=== PATIENT | female | born 1960 | race Caucasian/White ===

== ENCOUNTER → 2018-09-06 12:18 | Outpatient (CLI) | payer SELFPAY ==
[2018-09-06 13:05] LABS: Add Manual Diff / Slide Review NO; Basophils Absolute Auto 0 /uL (0-100); Basophils Percent Auto 0.7 % (0-2); Eosinophils Absolute Auto 200 /uL (0-450); Eosinophils Percent Auto 3.5 % (2-4); Hematocrit 39.9 % (36-46); Hemoglobin 13.2 g/dL (12.0-16.0); Lymphocytes Absolute Auto 2000 /uL (1100-4500); Lymphocytes Percent Auto 34.4 % (25-40); Mean Corpuscular HGB Conc 33.1 % (30-36); Mean Corpuscular Hemoglobin 27.7 PG (26-34); Mean Corpuscular Volume 83.7 fL (80-100); Monocytes Absolute Auto 300 /uL (0-900); Monocytes Percent Auto 5.9 % (3-14); Neutrophils Absolute Auto 3300 /uL (1500-7000); Neutrophils Percent Auto 55.5 % (50-75); Platelet Count 220 X10^3/uL (150-400); Red Blood Cell Count 4.77 X10^6/uL (4.0-5.2); Red Cell Distribution Width 14.1 % (11.6-14.8); White Blood Cell Count 5.9 X10^3/uL (4.5-11.0)
[2018-09-06 13:31] LABS: Alanine Aminotransferase 25 IU/L (9-52); Albumin 3.9 g/dL (3.5-5.0); Albumin Globulin Ratio 1.4 (1.0-2.8); Alkaline Phosphatase 51 U/L (38-126); Aspartate Aminotransferase 23 IU/L (14-36); BUN Creatinine Ratio 23.3 (6-22); Bilirubin Total 0.6 mg/dL (0.2-1.3); Blood Urea Nitrogen 14 mg/dL (7-17); Calcium 9.3 mg/dL (8.4-10.2); Carbon Dioxide 35 mmol/L (22-32); Chloride 95 mmol/L (98-107); Cholesterol 178 mg/dL (140-199); Estimated Glomerular Filt Rate > 60.0 mL/min (>60); Globulin 2.7 g/dL (1.7-4.1); Glucose 125 mg/dL (70-100); HDL Cholesterol 44 mg/dL (40-60); HEMOLYSIS < 15 (0-50); LDL Cholesterol Calculated 107 mg/dL (<100); Potassium 3.3 mmol/L (3.4-5.1); Sodium 139 mmol/L (137-145); Total Protein 6.6 g/dL (6.3-8.2); Triglycerides 136 mg/dL (35-150)
[2018-09-06 13:55] LABS: Hemoglobin A1C% w Est Avg Glu 6.3 % (4.0-6.0)
[2018-09-06 16:24] LABS: Free T3, Triiodothyronine Free 4.26 pg/mL (2.77-5.27); Free T4, Direct Thyroxine 1.06 ng/dL (0.78-2.19)
[2018-09-06 16:38] LABS: Thyroid Stimulating Hormone 0.77 uIU/mL (0.47-4.68)
[2018-09-09 15:56] LABS: Thyroid Peroxidase Antibodies 507 IU/mL (< 9)
== END ==
PROVIDERS: PCP Naturopath; Visit Provider Naturopath
DX: Z00.00 Encounter for general adult medical examination without abnormal findings (principal); E11.9 Type 2 diabetes mellitus without complications; E06.3 Autoimmune thyroiditis
CPT/HCPCS: 36415; 80053; 80061; 83036; 84439; 84443; 84481; 85025; 86376

== ENCOUNTER → 2019-09-19 13:01 | Outpatient (CLI) | payer SELFPAY ==
[2019-09-19 13:51] LABS: Add Manual Diff / Slide Review NO; Basophils Absolute Auto 100 /uL (0-100); Basophils Percent Auto 0.8 % (0-2); Eosinophils Absolute Auto 300 /uL (0-450); Hematocrit 40.1 % (36-46); Hemoglobin 13.4 g/dL (12.0-16.0); Lymphocytes Absolute Auto 2200 /uL (1100-4500); Lymphocytes Percent Auto 32.6 % (25-40); Mean Corpuscular HGB Conc 33.4 % (30-36); Mean Corpuscular Volume 83.9 fL (80-100); Monocytes Absolute Auto 400 /uL (0-900); Monocytes Percent Auto 5.4 % (3-14); Neutrophils Absolute Auto 3900 /uL (1500-7000); Neutrophils Percent Auto 57.2 % (50-75); Platelet Count 246 X10^3/uL (150-400); Red Blood Cell Count 4.78 X10^6/uL (4.0-5.2); White Blood Cell Count 6.8 X10^3/uL (4.5-11.0)
[2019-09-19 14:02] LABS: Hemoglobin A1C% w Est Avg Glu 6.8 % (4.0-6.0)
[2019-09-19 14:10] LABS: Alanine Aminotransferase 21 IU/L (<35); Albumin 4.1 g/dL (3.5-5.0); Albumin Globulin Ratio 1.7 (1.0-2.8); Alkaline Phosphatase 52 U/L (38-126); Aspartate Aminotransferase 20 IU/L (14-36); Bilirubin Total 0.5 mg/dL (0.2-1.3); Blood Urea Nitrogen 13 mg/dL (7-17); Calcium 9.6 mg/dL (8.4-10.2); Carbon Dioxide 36 mmol/L (22-32); Chloride 95 mmol/L (98-107); Cholesterol 187 mg/dL (140-199); Estimated Glomerular Filt Rate > 60.0 mL/min (>60); Globulin 2.4 g/dL (1.7-4.1); Glucose 120 mg/dL (70-100); HDL Cholesterol 46 mg/dL (40-60); HEMOLYSIS < 15 (0-50); LDL Cholesterol Calculated 112 mg/dL (<100); Potassium 3.7 mmol/L (3.4-5.1); Sodium 135 mmol/L (137-145); Total Protein 6.5 g/dL (6.3-8.2); Triglycerides 147 mg/dL (35-150)
[2019-09-19 14:39] LABS: Thyroid Stimulating Hormone 2.81 uIU/mL (0.47-4.68)
[2019-09-20 06:40] LABS: Thyroid Peroxidase Antibodies 411 IU/mL (0-34)
== END ==
PROVIDERS: PCP Naturopath; Referring Provider Naturopath; Visit Provider Naturopath
DX: Z00.00 Encounter for general adult medical examination without abnormal findings (principal); E11.9 Type 2 diabetes mellitus without complications; E06.3 Autoimmune thyroiditis
CPT/HCPCS: 36415; 80053; 80061; 83036; 84443; 85025; 86376

== ENCOUNTER → 2020-10-29 11:55 | Outpatient (CLI) | payer OTHER, SELFPAY ==
[2020-10-29 12:56] LABS: Add Manual Diff / Slide Review NO; Basophils Absolute Auto 0 /uL (0-100); Basophils Percent Auto 0.6 % (0-2); Eosinophils Absolute Auto 300 /uL (0-450); Eosinophils Percent Auto 4.8 % (2-4); Hematocrit 39.3 % (36-46); Hemoglobin 12.8 g/dL (12.0-16.0); Lymphocytes Absolute Auto 2100 /uL (1100-4500); Lymphocytes Percent Auto 31.8 % (25-40); Mean Corpuscular HGB Conc 32.6 % (30-36); Mean Corpuscular Hemoglobin 27.3 PG (26-34); Mean Corpuscular Volume 83.7 fL (80-100); Monocytes Absolute Auto 400 /uL (0-900); Monocytes Percent Auto 5.9 % (3-14); Neutrophils Absolute Auto 3700 /uL (1500-7000); Neutrophils Percent Auto 56.9 % (50-75); Platelet Count 241 X10^3/uL (150-400); Red Cell Distribution Width 14.1 % (11.6-14.8); White Blood Cell Count 6.5 X10^3/uL (4.5-11.0)
[2020-10-29 13:04] LABS: Hemoglobin A1C% w Est Avg Glu 6.6 % (4.0-6.0)
[2020-10-29 13:12] LABS: Alanine Aminotransferase 29 IU/L (<35); Albumin 3.9 g/dL (3.5-5.0); Albumin Globulin Ratio 1.4 (1.0-2.8); Alkaline Phosphatase 52 U/L (38-126); Aspartate Aminotransferase 24 IU/L (14-36); BUN Creatinine Ratio 24.2 (6-22); Bilirubin Total 0.4 mg/dL (0.2-1.3); Blood Urea Nitrogen 15 mg/dL (7-17); Calcium 9.3 mg/dL (8.4-10.2); Carbon Dioxide 32 mmol/L (22-32); Chloride 98 mmol/L (98-107); Cholesterol 192 mg/dL (140-199); Estimated Glomerular Filt Rate > 60.0 mL/min (>60); Globulin 2.8 g/dL (1.7-4.1); Glucose 129 mg/dL (70-100); HDL Cholesterol 47 mg/dL (40-60); HEMOLYSIS < 15 (0-50); LDL Cholesterol Calculated 120 mg/dL (<100); Potassium 3.6 mmol/L (3.4-5.1); Sodium 137 mmol/L (137-145); Total Protein 6.7 g/dL (6.3-8.2); Triglycerides 125 mg/dL (35-150)
[2020-10-29 14:12] LABS: Free T3, Triiodothyronine Free 3.68 pg/mL (2.77-5.27)
[2020-10-29 14:25] LABS: Thyroid Stimulating Hormone 1.18 uIU/mL (0.47-4.68)
[2020-10-30 06:27] LABS: Thyroid Peroxidase Antibodies 387 IU/mL (0-34)
== END ==
PROVIDERS: PCP Naturopath; Referring Provider Naturopath; Visit Provider Naturopath
DX: Z00.00 Encounter for general adult medical examination without abnormal findings (principal); E06.3 Autoimmune thyroiditis; E11.9 Type 2 diabetes mellitus without complications
CPT/HCPCS: 36415; 80053; 80061; 83036; 84439; 84443; 84481; 85025; 86376

== ENCOUNTER 2021-09-11 11:15 | Outpatient (RCR) | payer OTHER, SELFPAY ==
--- NOTE | 2021-03-11 17:44 | PT.OPPOC ---
Physical, Occupational & Speech Therapy At [facility] Current Diagnoses Bilateral primary osteoarthritis of knee (03/11/21) Difficulty in walking, not elsewhere classified (03/11/21) Weakness (03/11/21) Visit Care Team Role Provider Type Lily Antunez ND Family Provider Non-Staff Primary Care Provider Specialty: Naturopathy Address: [address] [place] [address], [id number] Email: Earnest Florentino MD Attending Provider Non-Staff Referring Provider Specialty: Orthopedics Address: [address] [place] [address], [id number] Email: Plan Of Care PT-OP-T Assessment and Plan Start: 03/10/21 17:44 Freq: Status: Active Protocol: Document 03/11/21 09:51 [facility] (Rec: 03/11/21 10:34 [facility] [id number]) Physical Therapy Assessment Rehab Potential Rehabilitation Potential Good Evaluation Complexity Number of Personal Factors/Comorbidities 3 or More Number of Body Systems Impaired 4 or More Clinical Presentation at Evaluation Stable Impairments Impairments Activity Tolerance,Balance, Functional Activities, Functional Mobility,Gait,Pain, Posture,ROM,Soft Tissue Mobility,Strength Goals ROM [employer] Goal (LTG) Pt will improve knee ROM to at least 4-115 to allow for improved gait mechanics and tolerance to stairs. LTG Duration 05/09/21 balance [employer] Goal (LTG) Pt will be able to do at least 12 sec SLS w/o lat shear of hips B in order to show improved balance and stability in the community and improve her gait mechanics. LTG Duration 05/09/21 stairs Short Term Goal (STG) Pt will be able to ascend stairs without rail reciprocally w/o pain STG Duration 04/11/21 Usp Goal (LTG) Pt will be able to consistatnly descend stairs reciprocally w/o pain w/min rail use LTG Duration 05/09/21 strength Short Term Goal (STG) PT will be indep w/HEP for aquatic and land exercises in order to have appropriate fitness program to dec knee pain and manage weight to help w/knee pain. STG Duration 04/11/21 Usp Goal (LTG) pt will have at least 4+/5 LE strength in all planes and at least 3/5 LPM in all planes to show improvement in strength in order to allow improved ability for mobility. LTG Duration 05/09/21 LEFS Impairment 49/80 Usp Goal (LTG) Pt will improve LEFS score to at least 60/80 to show improved functional ability. LTG Duration 05/10/21 Assessment Summary Assessment Pt presents w/B knee pain that limits her ability to do all standing, walking, stair climbing activities along w/ working out, which she hopes to progress in order to lose weight in order to unload knees further. She is very motivated to start a home program in her dgt's pool and on land. She has significant hip and core weakness which shows dec proximal stability which affects her knee mobility when she is WB doing activities like standing,w alking and stairs. She is lacking signficiant ROM whcih limits her ability to do stairs and have correct gait mechanics. She would benefit from skillled PT to work on these deficits. Physical Therapy Plan Frequency and Duration Frequency of Treatment 1-2x/week Duration of Treatment 2 months Plan of Care Start Date 03/11/21 Plan of Care End Date 05/09/21 Therapeutic Interventions Therapeutic Interventions Aquatic Therapy,Balance Training,Gait Training,Home Exercise Program,Joint Mobilizations,Manual Therapy, Neuromuscular Re-education, Patient/Caregiver Education, Self-Care/Home Management,Soft Tissue Mobilization,Taping, Therapeutic Activities, Therapeutic Exercises Modalities Cold Pack/Ice Massage,Electric Stimulation,Hot Packs, Infrared Therapy,Ultrasound Next Visit Focus/Plan Next Note Type Treatment Note Next Visit Plan SLS, mini squats, sidesteps w/ tband, clamshells, SLR w/core facilitation, bridge, Manual to soft tissue around knees Plan of Care Dates Plan of Care Start Date 03/11/21 Plan of Care End Date 05/09/21 Electronically Signed by: Anjana Mullins, PT 03/13/21 3105 Please Sign and Return: I have reviewed this Plan of Care and certify that the skilled therapy services above are required to meet the patient?s needs. Physician Signature Date Printed Name and Credentials Clinical Instructor Signature Printed Name and Credentials
--- NOTE | 2021-03-11 17:44 | PT.OIE ---
Current Diagnoses Bilateral primary osteoarthritis of knee (03/11/21) Difficulty in walking, not elsewhere classified (03/11/21) Weakness (03/11/21) Visit Care Team Role Provider Type Lily Antunez ND Family Provider Non-Staff Primary Care Provider Specialty: Naturopathy Address: [address] [place] [address], [id number] Email: Earnest Florentino MD Attending Provider Non-Staff Referring Provider Specialty: Orthopedics Address: [address] [place], [place] [id number] Mera [facility] [address], [place], [address] Email: Physical Therapy Initial Evaluation PT-OP-A Visit Information Start: 03/10/21 17:44 Freq: Status: Active Protocol: Document 03/11/21 09:51 [facility] (Rec: 03/11/21 10:34 [facility] [id number]) Out-Patient Physical Therapy Visit Information Visit Information Visit Type Initial Evaluation Visit Start Time 09:50 Visit Number 1 Number of MUSIC GRAPHER Visits 0 PT-OP-B Current Condition Start: 03/10/21 17:44 Freq: Status: Active Protocol: Document 03/11/21 09:51 [facility] (Rec: 03/11/21 10:34 [facility] [id number]) Current Condition History of Current Condition Onset Date at least 11 years ago. Current Complaints B knee pain History of Current Condition Pt reports with medication her knee pain is under control. She has lost 100 lbs and that has helped along w/working w/ service dog trainer but w/COVID she isn't working now. She is girotonics and taht has helped a lot. Pt reports she was diagnosed w/ OA 11 years ago. said there is some bone on bone but was not at the point for needing a knee replacement. It is hard for her to go down stairs and needs a rail for up/down. UP typically doesn't hurt. Pt reports if she has to stand for a couple hours in the kitchen her knees hurt which is common d/t her large family . She is able to make pain more managable if she sits down for a couple min during cooking. Pt reports R knee is worse than the left and it will swell something. Sometimes she feels like there is something muscular. Her quad and HS can bother her but the girotonics has helped. She goes once a week to the girotonics service dog trainer. It is supposed to strengthen and improve flexibility. Notes she has not been working out as much recently. SHe has access to a pool and wants to start working out and using the pool more often. Pt reports she did have COVID about 1 year ago and some sideaffects she had was a really bad backache and GRIMM. Since then every now and then she gets the back pain and typically gets some shoulder tightness Pt reports every once in a while her L hip will her bug her, especailly the last couple of days. She sleeps on her side and/or back. Pt has history of gallbladder and C-sections. Pt has a stationary bike and outdoor bike that she plans to use. When she was going to her service dog trainer, she did the treadmill, rowed, and did weights/squats. Pt reports d/t severe pain in heel, she had surgery for lengthening of tendon on the bottom of foot but not positive of foot and that improved it. She thinks maybe left Prior Treatments and Tests Xrays done showing OA; 1 injection 11 years ago that helped Treatment Goals Patient/Caregiver Goals Be able to work out w/o knee pain(bike, pool and lifting) to be able to lose at least 50 more 50lbs, be able to do stairs better(right now has to do step to w/o rail up and step to all the time down) PT-OP-C Subjective Start: 03/10/21 17:44 Freq: Status: Active Protocol: Document 03/11/21 09:51 [facility] (Rec: 03/11/21 10:34 [facility] [id number]) Patient Questionnaires Lower Extremity Functional Scale LEFS Score 49/80 OP-PT Pain Assessment Location B knees Pain Location Details ant knees Description Aching,Tightness Frequency Intermittent Pain Duration can take a couple days Radiating Location quad/HS Pain Aggravating Factors Standing,Walking,Stair Climbing Other Pain Aggravating Factors down stairs Pain Alleviating Factors Cold,Heat,Medication Other Pain Alleviating Factors daily dicolofenac, occ ibuprofen PT-OP-D Balance Start: 03/10/21 17:44 Freq: Status: Active Protocol: Document 03/11/21 09:51 [facility] (Rec: 03/11/21 10:34 [facility] [id number]) Balance Tests Single Limb Standing Single Limb- Right 7 sec w/UEs and signficiant lat shear of hips Single Limb- Left 11 sec w/UEs and signficiant lat shear of hips PT-OP-F Manual Assessment Start: 03/10/21 17:44 Freq: Status: Active Protocol: Document 03/11/21 09:51 [facility] (Rec: 03/11/21 10:34 [facility] [id number]) Manual Assessments Joint Mobility Assessment Joint Mobility Assessment B Varus knees & rear foot B, bunion L>R, IR of femur B, ER of tibia L>R, knee goes into IR R w/knee flex, flat arch PT-OP-G Mobility & Gait Start: 03/10/21 17:44 Freq: Status: Active Protocol: Document 03/11/21 09:51 [facility] (Rec: 03/11/21 10:34 [facility] [id number]) OP Gait Assessment Comments Gait Comments Amb w/dec push off R>L, lat lean over R w/WB significant, add of L PT-OP-J Posture/Palpation/Skin Start: 03/10/21 17:44 Freq: Status: Active Protocol: Document 03/11/21 09:51 [facility] (Rec: 03/11/21 10:34 [facility] [id number]) Posture Evaluation [facility] Postural Classification System Lumbar Protective Mechanism Left AP 0 Lumbar Protective Mechanism Right AP 1 Lumbar Protective Mechanism Left PA 1 Lumbar Protective Mechanism Right PA 0 PT-OP-K Range of Motion Start: 03/10/21 17:44 Freq: Status: Active Protocol: Document 03/11/21 09:51 [facility] (Rec: 03/11/21 10:34 [facility] [id number]) Knee Goniometric Range of Motion Knee Right Flexion Active (degrees) 102 Extension Active (degrees) 12 Comments discomfort flex & ext Left Flexion Active (degrees) 102 Extension Active (degrees) 6 PT-OP-L Special Tests Start: 03/10/21 17:44 Freq: Status: Active Protocol: Document 03/11/21 09:51 [facility] (Rec: 03/11/21 10:34 [facility] [id number]) Special Tests Knee Special Tests Hamstring Test Results mild-mod tightness B PT-OP-M Strength Start: 03/10/21 17:44 Freq: Status: Active Protocol: Document 03/11/21 09:51 [facility] (Rec: 03/11/21 10:34 [facility] [id number]) Hip Strength Hip Manual Muscle Testing Right Flexion (L2) 4 Good Extension (S1) 4- Good- Abduction 4 Good Adduction 3+ Fair+ External Rotation 4- Good- Internal Rotation 4+ Good+ Left Flexion (L2) 4- Good- Extension (S1) 4- Good- Abduction 4- Good- Adduction 3+ Fair+ External Rotation 4 Good Internal Rotation 4 Good Knee Strength Knee Manual Muscle Testing Right Flexion (S2) 4 Good Extension (L3) 4+ Good+ Left Flexion (S2) 4 Good Extension (L3) 4+ Good+ Ankle/Foot Strength Ankle and Foot Manual Muscle Testing Right Dorsiflexion (L4) 5 Normal Plantarflexion (S1) 5 Normal Comments 20 heel raises B w/inversion Left Dorsiflexion (L4) 5 Normal Plantarflexion (S1) 5 Normal PT-OP-T Assessment and Plan Start: 03/10/21 17:44 Freq: Status: Active Protocol: Document 03/11/21 09:51 [facility] (Rec: 03/11/21 10:34 [facility] [id number]) Physical Therapy Assessment Rehab Potential Rehabilitation Potential Good Evaluation Complexity Number of Personal Factors/Comorbidities 3 or More Number of Body Systems Impaired 4 or More Clinical Presentation at Evaluation Stable Impairments Impairments Activity Tolerance,Balance, Functional Activities, Functional Mobility,Gait,Pain, Posture,ROM,Soft Tissue Mobility,Strength Goals ROM [employer] Goal (LTG) Pt will improve knee ROM to at least 4-115 to allow for improved gait mechanics and tolerance to stairs. LTG Duration 05/09/21 balance [employer] Goal (LTG) Pt will be able to do at least 12 sec SLS w/o lat shear of hips B in order to show improved balance and stability in the community and improve her gait mechanics. LTG Duration 05/09/21 stairs Short Term Goal (STG) Pt will be able to ascend stairs without rail reciprocally w/o pain STG Duration 04/11/21 [employer] Goal (LTG) Pt will be able to consistatnly descend stairs reciprocally w/o pain w/min rail use LTG Duration 05/09/21 strength Short Term Goal (STG) PT will be indep w/HEP for aquatic and land exercises in order to have appropriate fitness program to dec knee pain and manage weight to help w/knee pain. STG Duration 04/11/21 Fdc Goal (LTG) pt will have at least 4+/5 LE strength in all planes and at least 3/5 LPM in all planes to show improvement in strength in order to allow improved ability for mobility. LTG Duration 05/09/21 LEFS Impairment 49/80 Fdc Goal (LTG) Pt will improve LEFS score to at least 60/80 to show improved functional ability. LTG Duration 05/10/21 Assessment Summary Assessment Pt presents w/B knee pain that limits her ability to do all standing, walking, stair climbing activities along w/ working out, which she hopes to progress in order to lose weight in order to unload knees further. She is very motivated to start a home program in her dgt's pool and on land. She has significant hip and core weakness which shows dec proximal stability which affects her knee mobility when she is WB doing activities like standing,w alking and stairs. She is lacking signficiant ROM whcih limits her ability to do stairs and have correct gait mechanics. She would benefit from skillled PT to work on these deficits. Physical Therapy Plan Frequency and Duration Frequency of Treatment 1-2x/week Duration of Treatment 2 months Plan of Care Start Date 03/11/21 Plan of Care End Date 05/09/21 Therapeutic Interventions Therapeutic Interventions Aquatic Therapy,Balance Training,Gait Training,Home Exercise Program,Joint Mobilizations,Manual Therapy, Neuromuscular Re-education, Patient/Caregiver Education, Self-Care/Home Management,Soft Tissue Mobilization,Taping, Therapeutic Activities, Therapeutic Exercises Modalities Cold Pack/Ice Massage,Electric Stimulation,Hot Packs, Infrared Therapy,Ultrasound Next Visit Focus/Plan Next Note Type Treatment Note Next Visit Plan SLS, mini squats, sidesteps w/ tband, clamshells, SLR w/core facilitation, bridge, Manual to soft tissue around knees
--- NOTE | 2021-03-18 12:11 | PT.OTN ---
Current Diagnoses Bilateral primary osteoarthritis of knee (03/18/21) Difficulty in walking, not elsewhere classified (03/18/21) Weakness (03/18/21) Physical Therapy Treatment Note PT-OP-A Visit Information Start: 03/10/21 17:44 Freq: Status: Active Protocol: Document 03/18/21 10:26 [facility] (Rec: 03/18/21 12:11 [facility] [id number]) Out-Patient Physical Therapy Visit Information Visit Information Visit Type Treatment Note Visit Start Time 10:31 Visit Stop Time 11:14 Total Visit Minutes 43 Visit Number 2 Number of SAWMILL OR TIMBER YARD WORKER Visits 0 PT-OP-B Current Condition Start: 03/10/21 17:44 Freq: Status: Active Protocol: Document 03/11/21 09:51 [facility] (Rec: 03/11/21 10:34 [facility] [id number]) Current Condition History of Current Condition Onset Date at least 11 years ago. Current Complaints B knee pain History of Current Condition Pt reports with medication her knee pain is under control. She has lost 100 lbs and that has helped along w/working w/ business trainer but w/COVID she isn't working now. She is girotonics and taht has helped a lot. Pt reports she was diagnosed w/ OA 11 years ago. said there is some bone on bone but was not at the point for needing a knee replacement. It is hard for her to go down stairs and needs a rail for up/down. UP typically doesn't hurt. Pt reports if she has to stand for a couple hours in the kitchen her knees hurt which is common d/t her large family . She is able to make pain more managable if she sits down for a couple min during cooking. Pt reports R knee is worse than the left and it will swell something. Sometimes she feels like there is something muscular. Her quad and HS can bother her but the girotonics has helped. She goes once a week to the girotonics business trainer. It is supposed to strengthen and improve flexibility. Notes she has not been working out as much recently. SHe has access to a pool and wants to start working out and using the pool more often. Pt reports she did have COVID about 1 year ago and some sideaffects she had was a really bad backache and GRIMM. Since then every now and then she gets the back pain and typically gets some shoulder tightness Pt reports every once in a while her L hip will her bug her, especailly the last couple of days. She sleeps on her side and/or back. Pt has history of gallbladder and C-sections. Pt has a stationary bike and outdoor bike that she plans to use. When she was going to her business trainer, she did the treadmill, rowed, and did weights/squats. Pt reports d/t severe pain in heel, she had surgery for lengthening of tendon on the bottom of foot but not positive of foot and that improved it. She thinks maybe left Prior Treatments and Tests Xrays done showing OA; 1 injection 11 years ago that helped Treatment Goals Patient/Caregiver Goals Be able to work out w/o knee pain(bike, pool and lifting) to be able to lose at least 50 more 50lbs, be able to do stairs better(right now has to do step to w/o rail up and step to all the time down) PT-OP-C Subjective Start: 03/10/21 17:44 Freq: Status: Active Protocol: Document 03/18/21 10:26 [facility] (Rec: 03/18/21 12:11 [facility] [id number]) OP-PT Subjective Patient Comments Patient Comments Pt reports feels like gyrotonics exercise class helps a ton PT-OP-D Balance Start: 03/10/21 17:44 Freq: Status: Active Protocol: Document 03/11/21 09:51 [facility] (Rec: 03/11/21 10:34 [facility] [id number]) Balance Tests Single Limb Standing Single Limb- Right 7 sec w/UEs and signficiant lat shear of hips Single Limb- Left 11 sec w/UEs and signficiant lat shear of hips PT-OP-F Manual Assessment Start: 03/10/21 17:44 Freq: Status: Active Protocol: Document 03/11/21 09:51 [facility] (Rec: 03/11/21 10:34 [facility] [id number]) Manual Assessments Joint Mobility Assessment Joint Mobility Assessment B Varus knees & rear foot B, bunion L>R, IR of femur B, ER of tibia L>R, knee goes into IR R w/knee flex, flat arch PT-OP-G Mobility & Gait Start: 03/10/21 17:44 Freq: Status: Active Protocol: Document 03/11/21 09:51 [facility] (Rec: 03/11/21 10:34 [facility] [id number]) OP Gait Assessment Comments Gait Comments Amb w/dec push off R>L, lat lean over R w/WB significant, add of L PT-OP-J Posture/Palpation/Skin Start: 03/10/21 17:44 Freq: Status: Active Protocol: Document 03/11/21 09:51 [facility] (Rec: 03/11/21 10:34 [facility] [id number]) Posture Evaluation [facility] Postural Classification System Lumbar Protective Mechanism Left AP 0 Lumbar Protective Mechanism Right AP 1 Lumbar Protective Mechanism Left PA 1 Lumbar Protective Mechanism Right PA 0 PT-OP-K Range of Motion Start: 03/10/21 17:44 Freq: Status: Active Protocol: Document 03/11/21 09:51 [facility] (Rec: 03/11/21 10:34 [facility] [id number]) Knee Goniometric Range of Motion Knee Right Flexion Active (degrees) 102 Extension Active (degrees) 12 Comments discomfort flex & ext Left Flexion Active (degrees) 102 Extension Active (degrees) 6 PT-OP-L Special Tests Start: 03/10/21 17:44 Freq: Status: Active Protocol: Document 03/11/21 09:51 [facility] (Rec: 03/11/21 10:34 [facility] [id number]) Special Tests Knee Special Tests Hamstring Test Results mild-mod tightness B PT-OP-M Strength Start: 03/10/21 17:44 Freq: Status: Active Protocol: Document 03/11/21 09:51 [facility] (Rec: 03/11/21 10:34 [facility] [id number]) Hip Strength Hip Manual Muscle Testing Right Flexion (L2) 4 Good Extension (S1) 4- Good- Abduction 4 Good Adduction 3+ Fair+ External Rotation 4- Good- Internal Rotation 4+ Good+ Left Flexion (L2) 4- Good- Extension (S1) 4- Good- Abduction 4- Good- Adduction 3+ Fair+ External Rotation 4 Good Internal Rotation 4 Good Knee Strength Knee Manual Muscle Testing Right Flexion (S2) 4 Good Extension (L3) 4+ Good+ Left Flexion (S2) 4 Good Extension (L3) 4+ Good+ Ankle/Foot Strength Ankle and Foot Manual Muscle Testing Right Dorsiflexion (L4) 5 Normal Plantarflexion (S1) 5 Normal Comments 20 heel raises B w/inversion Left Dorsiflexion (L4) 5 Normal Plantarflexion (S1) 5 Normal PT-OP-Q Treatments Start: 03/10/21 17:44 Freq: Status: Active Protocol: Document 03/18/21 10:26 [facility] (Rec: 03/18/21 12:11 [facility] [id number]) Cardio Equipment Recumbent Bicycle Duration (Minutes) 5 Resistance 5 Seat Position 5 Therapeutic Exercises Supine Exercises SLR Supine Exercise Name core focus Side bilateral Reps/Minutes 15 bridge Supine Exercise Name focus on core & glutes Side bilateral Reps/Minutes 10 sec x8 Sidelying Exercises clamshells Side bilateral Reps/Minutes 20 Standing Exercises squats Standing Exercise Name mini Side bilateral Equipment Used at bar w/chair behind Reps/Minutes 20 Comments cues for glutes and stand all the way straight up sidesteps Side bilateral Equipment Used L1 Reps/Minutes 20ft Manual Therapy Treatment Soft Tissue Mobilization ITB Body Location L Mobilization Type Rolling,Strumming Intensity/Depth Moderate Body Position Hooklying Comments w/hip IR/ER Neuro Re-Education Treatment Balance Activities SLS Details B trials Comments focus on no hip shear in mirror PT-OP-T Assessment and Plan Start: 03/10/21 17:44 Freq: Status: Active Protocol: Document 03/18/21 10:26 [facility] (Rec: 03/18/21 12:11 [facility] [id number]) Physical Therapy Assessment Goals ROM Retirement Goal (LTG) Pt will improve knee ROM to at least 4-115 to allow for improved gait mechanics and tolerance to stairs. LTG Duration 05/09/21 balance It Consulting Director Goal (LTG) Pt will be able to do at least 12 sec SLS w/o lat shear of hips B in order to show improved balance and stability in the community and improve her gait mechanics. LTG Duration 05/09/21 stairs Short Term Goal (STG) Pt will be able to ascend stairs without rail reciprocally w/o pain STG Duration 04/11/21 It Consulting Director Goal (LTG) Pt will be able to consistatnly descend stairs reciprocally w/o pain w/min rail use LTG Duration 05/09/21 strength Short Term Goal (STG) PT will be indep w/HEP for aquatic and land exercises in order to have appropriate fitness program to dec knee pain and manage weight to help w/knee pain. STG Duration 04/11/21 Retirement Goal (LTG) pt will have at least 4+/5 LE strength in all planes and at least 3/5 LPM in all planes to show improvement in strength in order to allow improved ability for mobility. LTG Duration 05/09/21 LEFS Impairment 49/80 Retirement Goal (LTG) Pt will improve LEFS score to at least 60/80 to show improved functional ability. LTG Duration 05/10/21 Assessment Summary Assessment Pt did well with exercises w/ cues and was able to follow cueing for good form. Noted some L lat thigh discomfort during side step w/pt noting that has been more bothersome in that area. Pt reported significant relief w/ITB work manually. Physical Therapy Plan Frequency and Duration Frequency of Treatment 1-2x/week Duration of Treatment 2 months Plan of Care Start Date 03/11/21 Plan of Care End Date 05/09/21 Next Visit Focus/Plan Next Note Type Treatment Note Next Visit Plan review exercises, soft tissue and joint mobs
--- NOTE | 2021-03-25 11:23 | PT.OTN ---
Current Diagnoses Bilateral primary osteoarthritis of knee (03/25/21) Difficulty in walking, not elsewhere classified (03/25/21) Weakness (03/25/21) Physical Therapy Treatment Note PT-OP-A Visit Information Start: 03/10/21 17:44 Freq: Status: Active Protocol: Document 03/25/21 10:37 [facility] (Rec: 03/25/21 11:23 [facility] [id number]) Out-Patient Physical Therapy Visit Information Visit Information Visit Type Treatment Note Visit Start Time 10:35 Visit Stop Time 11:18 Total Visit Minutes 43 Visit Number 3 Number of BENDING PRESS OPERATOR Visits 0 PT-OP-B Current Condition Start: 03/10/21 17:44 Freq: Status: Active Protocol: Document 03/11/21 09:51 [facility] (Rec: 03/11/21 10:34 [facility] [id number]) Current Condition History of Current Condition Onset Date at least 11 years ago. Current Complaints B knee pain History of Current Condition Pt reports with medication her knee pain is under control. She has lost 100 lbs and that has helped along w/working w/ sports medicine trainer but w/COVID she isn't working now. She is girotonics and taht has helped a lot. Pt reports she was diagnosed w/ OA 11 years ago. said there is some bone on bone but was not at the point for needing a knee replacement. It is hard for her to go down stairs and needs a rail for up/down. UP typically doesn't hurt. Pt reports if she has to stand for a couple hours in the kitchen her knees hurt which is common d/t her large family . She is able to make pain more managable if she sits down for a couple min during cooking. Pt reports R knee is worse than the left and it will swell something. Sometimes she feels like there is something muscular. Her quad and HS can bother her but the girotonics has helped. She goes once a week to the girotonics sports medicine trainer. It is supposed to strengthen and improve flexibility. Notes she has not been working out as much recently. SHe has access to a pool and wants to start working out and using the pool more often. Pt reports she did have COVID about 1 year ago and some sideaffects she had was a really bad backache and GRIMM. Since then every now and then she gets the back pain and typically gets some shoulder tightness Pt reports every once in a while her L hip will her bug her, especailly the last couple of days. She sleeps on her side and/or back. Pt has history of gallbladder and C-sections. Pt has a stationary bike and outdoor bike that she plans to use. When she was going to her sports medicine trainer, she did the treadmill, rowed, and did weights/squats. Pt reports d/t severe pain in heel, she had surgery for lengthening of tendon on the bottom of foot but not positive of foot and that improved it. She thinks maybe left Prior Treatments and Tests Xrays done showing OA; 1 injection 11 years ago that helped Treatment Goals Patient/Caregiver Goals Be able to work out w/o knee pain(bike, pool and lifting) to be able to lose at least 50 more 50lbs, be able to do stairs better(right now has to do step to w/o rail up and step to all the time down) PT-OP-C Subjective Start: 03/10/21 17:44 Freq: Status: Active Protocol: Document 03/25/21 10:37 [facility] (Rec: 03/25/21 11:23 [facility] [id number]) OP-PT Subjective Patient Comments Patient Comments Pt reports feeling much better with knees and hips after last session. Even getting up from the table is improved and isn't as painful Patient Reported Progress Improving PT-OP-D Balance Start: 03/10/21 17:44 Freq: Status: Active Protocol: Document 03/11/21 09:51 [facility] (Rec: 03/11/21 10:34 [facility] [id number]) Balance Tests Single Limb Standing Single Limb- Right 7 sec w/UEs and signficiant lat shear of hips Single Limb- Left 11 sec w/UEs and signficiant lat shear of hips PT-OP-F Manual Assessment Start: 03/10/21 17:44 Freq: Status: Active Protocol: Document 03/11/21 09:51 [facility] (Rec: 03/11/21 10:34 [facility] [id number]) Manual Assessments Joint Mobility Assessment Joint Mobility Assessment B Varus knees & rear foot B, bunion L>R, IR of femur B, ER of tibia L>R, knee goes into IR R w/knee flex, flat arch PT-OP-G Mobility & Gait Start: 03/10/21 17:44 Freq: Status: Active Protocol: Document 03/11/21 09:51 [facility] (Rec: 03/11/21 10:34 [facility] [id number]) OP Gait Assessment Comments Gait Comments Amb w/dec push off R>L, lat lean over R w/WB significant, add of L PT-OP-J Posture/Palpation/Skin Start: 03/10/21 17:44 Freq: Status: Active Protocol: Document 03/11/21 09:51 [facility] (Rec: 03/11/21 10:34 [facility] [id number]) Posture Evaluation [facility] Postural Classification System Lumbar Protective Mechanism Left AP 0 Lumbar Protective Mechanism Right AP 1 Lumbar Protective Mechanism Left PA 1 Lumbar Protective Mechanism Right PA 0 PT-OP-K Range of Motion Start: 03/10/21 17:44 Freq: Status: Active Protocol: Document 03/11/21 09:51 [facility] (Rec: 03/11/21 10:34 [facility] [id number]) Knee Goniometric Range of Motion Knee Right Flexion Active (degrees) 102 Extension Active (degrees) 12 Comments discomfort flex & ext Left Flexion Active (degrees) 102 Extension Active (degrees) 6 PT-OP-L Special Tests Start: 03/10/21 17:44 Freq: Status: Active Protocol: Document 03/11/21 09:51 [facility] (Rec: 03/11/21 10:34 [facility] [id number]) Special Tests Knee Special Tests Hamstring Test Results mild-mod tightness B PT-OP-M Strength Start: 03/10/21 17:44 Freq: Status: Active Protocol: Document 03/11/21 09:51 [facility] (Rec: 03/11/21 10:34 [facility] [id number]) Hip Strength Hip Manual Muscle Testing Right Flexion (L2) 4 Good Extension (S1) 4- Good- Abduction 4 Good Adduction 3+ Fair+ External Rotation 4- Good- Internal Rotation 4+ Good+ Left Flexion (L2) 4- Good- Extension (S1) 4- Good- Abduction 4- Good- Adduction 3+ Fair+ External Rotation 4 Good Internal Rotation 4 Good Knee Strength Knee Manual Muscle Testing Right Flexion (S2) 4 Good Extension (L3) 4+ Good+ Left Flexion (S2) 4 Good Extension (L3) 4+ Good+ Ankle/Foot Strength Ankle and Foot Manual Muscle Testing Right Dorsiflexion (L4) 5 Normal Plantarflexion (S1) 5 Normal Comments 20 heel raises B w/inversion Left Dorsiflexion (L4) 5 Normal Plantarflexion (S1) 5 Normal PT-OP-Q Treatments Start: 03/10/21 17:44 Freq: Status: Active Protocol: Document 03/25/21 10:37 [facility] (Rec: 03/25/21 11:23 [facility] [id number]) Cardio Equipment Recumbent Bicycle Duration (Minutes) 5 Resistance 8 Seat Position 4 Therapeutic Exercises Sidelying Exercises clamshells Side bilateral Reps/Minutes 5 Standing Exercises step up Standing Exercise Name (after 4 in steps train up/ down 2x wt shift) Side bilateral Equipment Used 4 in step Reps/Minutes 15 Comments work on wt shift into LE on step hip hike Side bilateral Equipment Used 4 in step w/rail Reps/Minutes 10 squats Standing Exercise Name mini Side bilateral Equipment Used w/chair behind Reps/Minutes 20 Comments cues for glutes and stand all the way straight up sidesteps Standing Exercise Name cues for core tight and post tilt Side bilateral Equipment Used L1 Reps/Minutes 20ft Manual Therapy Treatment Soft Tissue Mobilization quad Body Location lat border Mobilization Type Rolling,Strumming Intensity/Depth Moderate Body Position Hooklying Joint Mobilizations tib fem Joint R Direction IR tibia Neuro Re-Education Treatment Balance Activities SLS Details B trials Comments focus on no hip shear in mirror PT-OP-T Assessment and Plan Start: 03/10/21 17:44 Freq: Status: Active Protocol: Document 03/25/21 10:37 [facility] (Rec: 03/25/21 11:23 [facility] [id number]) Physical Therapy Assessment Goals ROM Half-Way Goal (LTG) Pt will improve knee ROM to at least 4-115 to allow for improved gait mechanics and tolerance to stairs. LTG Duration 05/09/21 balance Half-Way Goal (LTG) Pt will be able to do at least 12 sec SLS w/o lat shear of hips B in order to show improved balance and stability in the community and improve her gait mechanics. LTG Duration 05/09/21 stairs Short Term Goal (STG) Pt will be able to ascend stairs without rail reciprocally w/o pain STG Duration 04/11/21 Half-Way Goal (LTG) Pt will be able to consistatnly descend stairs reciprocally w/o pain w/min rail use LTG Duration 05/09/21 strength Short Term Goal (STG) PT will be indep w/HEP for aquatic and land exercises in order to have appropriate fitness program to dec knee pain and manage weight to help w/knee pain. STG Duration 04/11/21 Room Service Associate Goal (LTG) pt will have at least 4+/5 LE strength in all planes and at least 3/5 LPM in all planes to show improvement in strength in order to allow improved ability for mobility. LTG Duration 05/09/21 LEFS Impairment 49/80 Room Service Associate Goal (LTG) Pt will improve LEFS score to at least 60/80 to show improved functional ability. LTG Duration 05/10/21 Assessment Summary Assessment Pt did well with steps w/less pain after cuieng.S he did dwell with exercises but did require some cueing. She reported relief w/manual Physical Therapy Plan Frequency and Duration Frequency of Treatment 1-2x/week Duration of Treatment 2 months Plan of Care Start Date 03/11/21 Plan of Care End Date 05/09/21 Next Visit Focus/Plan Next Note Type Treatment Note Next Visit Plan review step ups, squats, side steps, cont to work on thigh and knee mobility
--- NOTE | 2021-03-28 15:32 | PT.OTN ---
Current Diagnoses Bilateral primary osteoarthritis of knee (03/28/21) Difficulty in walking, not elsewhere classified (03/28/21) Weakness (03/28/21) Physical Therapy Treatment Note PT-OP-A Visit Information Start: 03/10/21 17:44 Freq: Status: Active Protocol: Document 03/28/21 15:12 LJ (Rec: 03/28/21 15:32 LJ [id number]) Out-Patient Physical Therapy Visit Information Visit Information Visit Type Aquatic Treatment Note Visit Start Time 11:00 Visit Stop Time 11:45 Total Visit Minutes 45 Visit Number 4 Number of BLUEPRINT ASSEMBLER Visits 1 PT-OP-B Current Condition Start: 03/10/21 17:44 Freq: Status: Active Protocol: Document 03/11/21 09:51 LR (Rec: 03/11/21 10:34 [facility] [id number]) Current Condition History of Current Condition Onset Date at least 11 years ago. Current Complaints B knee pain History of Current Condition Pt reports with medication her knee pain is under control. She has lost 100 lbs and that has helped along w/working w/ cell preparer but w/COVID she isn't working now. She is girotonics and taht has helped a lot. Pt reports she was diagnosed w/ OA 11 years ago. said there is some bone on bone but was not at the point for needing a knee replacement. It is hard for her to go down stairs and needs a rail for up/down. UP typically doesn't hurt. Pt reports if she has to stand for a couple hours in the kitchen her knees hurt which is common d/t her large family . She is able to make pain more managable if she sits down for a couple min during cooking. Pt reports R knee is worse than the left and it will swell something. Sometimes she feels like there is something muscular. Her quad and HS can bother her but the girotonics has helped. She goes once a week to the girotonics cell preparer. It is supposed to strengthen and improve flexibility. Notes she has not been working out as much recently. SHe has access to a pool and wants to start working out and using the pool more often. Pt reports she did have COVID about 1 year ago and some sideaffects she had was a really bad backache and GRIMM. Since then every now and then she gets the back pain and typically gets some shoulder tightness Pt reports every once in a while her L hip will her bug her, especailly the last couple of days. She sleeps on her side and/or back. Pt has history of gallbladder and C-sections. Pt has a stationary bike and outdoor bike that she plans to use. When she was going to her cell preparer, she did the treadmill, rowed, and did weights/squats. Pt reports d/t severe pain in heel, she had surgery for lengthening of tendon on the bottom of foot but not positive of foot and that improved it. She thinks maybe left Prior Treatments and Tests Xrays done showing OA; 1 injection 11 years ago that helped Treatment Goals Patient/Caregiver Goals Be able to work out w/o knee pain(bike, pool and lifting) to be able to lose at least 50 more 50lbs, be able to do stairs better(right now has to do step to w/o rail up and step to all the time down) PT-OP-C Subjective Start: 03/10/21 17:44 Freq: Status: Active Protocol: Document 03/28/21 15:12 LJ (Rec: 03/28/21 15:32 LJ [id number]) OP-PT Subjective Patient Comments Patient Comments Pt excited about pool therapy. States she has access to two pools and already does some exercising at her daughter's pool and her own pool in the warmer months Patient Reported Progress Improving PT-OP-D Balance Start: 03/10/21 17:44 Freq: Status: Active Protocol: Document 03/11/21 09:51 [facility] (Rec: 03/11/21 10:34 [facility] [id number]) Balance Tests Single Limb Standing Single Limb- Right 7 sec w/UEs and signficiant lat shear of hips Single Limb- Left 11 sec w/UEs and signficiant lat shear of hips PT-OP-F Manual Assessment Start: 03/10/21 17:44 Freq: Status: Active Protocol: Document 03/11/21 09:51 [facility] (Rec: 03/11/21 10:34 [facility] [id number]) Manual Assessments Joint Mobility Assessment Joint Mobility Assessment B Varus knees & rear foot B, bunion L>R, IR of femur B, ER of tibia L>R, knee goes into IR R w/knee flex, flat arch PT-OP-G Mobility & Gait Start: 03/10/21 17:44 Freq: Status: Active Protocol: Document 03/11/21 09:51 [facility] (Rec: 03/11/21 10:34 [facility] [id number]) OP Gait Assessment Comments Gait Comments Amb w/dec push off R>L, lat lean over R w/WB significant, add of L PT-OP-J Posture/Palpation/Skin Start: 03/10/21 17:44 Freq: Status: Active Protocol: Document 03/11/21 09:51 [facility] (Rec: 03/11/21 10:34 [facility] [id number]) Posture Evaluation [facility] Postural Classification System Lumbar Protective Mechanism Left AP 0 Lumbar Protective Mechanism Right AP 1 Lumbar Protective Mechanism Left PA 1 Lumbar Protective Mechanism Right PA 0 PT-OP-K Range of Motion Start: 03/10/21 17:44 Freq: Status: Active Protocol: Document 03/11/21 09:51 [facility] (Rec: 03/11/21 10:34 [facility] [id number]) Knee Goniometric Range of Motion Knee Right Flexion Active (degrees) 102 Extension Active (degrees) 12 Comments discomfort flex & ext Left Flexion Active (degrees) 102 Extension Active (degrees) 6 PT-OP-L Special Tests Start: 03/10/21 17:44 Freq: Status: Active Protocol: Document 03/11/21 09:51 [facility] (Rec: 03/11/21 10:34 [facility] [id number]) Special Tests Knee Special Tests Hamstring Test Results mild-mod tightness B PT-OP-M Strength Start: 03/10/21 17:44 Freq: Status: Active Protocol: Document 03/11/21 09:51 [facility] (Rec: 03/11/21 10:34 [facility] [id number]) Hip Strength Hip Manual Muscle Testing Right Flexion (L2) 4 Good Extension (S1) 4- Good- Abduction 4 Good Adduction 3+ Fair+ External Rotation 4- Good- Internal Rotation 4+ Good+ Left Flexion (L2) 4- Good- Extension (S1) 4- Good- Abduction 4- Good- Adduction 3+ Fair+ External Rotation 4 Good Internal Rotation 4 Good Knee Strength Knee Manual Muscle Testing Right Flexion (S2) 4 Good Extension (L3) 4+ Good+ Left Flexion (S2) 4 Good Extension (L3) 4+ Good+ Ankle/Foot Strength Ankle and Foot Manual Muscle Testing Right Dorsiflexion (L4) 5 Normal Plantarflexion (S1) 5 Normal Comments 20 heel raises B w/inversion Left Dorsiflexion (L4) 5 Normal Plantarflexion (S1) 5 Normal PT-OP-Q Treatments Start: 03/10/21 17:44 Freq: Status: Active Protocol: Document 03/25/21 10:37 [facility] (Rec: 03/25/21 11:23 [facility] [id number]) Cardio Equipment Recumbent Bicycle Duration (Minutes) 5 Resistance 8 Seat Position 4 Therapeutic Exercises Sidelying Exercises clamshells Side bilateral Reps/Minutes 5 Standing Exercises step up Standing Exercise Name (after 4 in steps train up/ down 2x wt shift) Side bilateral Equipment Used 4 in step Reps/Minutes 15 Comments work on wt shift into LE on step hip hike Side bilateral Equipment Used 4 in step w/rail Reps/Minutes 10 squats Standing Exercise Name mini Side bilateral Equipment Used w/chair behind Reps/Minutes 20 Comments cues for glutes and stand all the way straight up sidesteps Standing Exercise Name cues for core tight and post tilt Side bilateral Equipment Used L1 Reps/Minutes 20ft Manual Therapy Treatment Soft Tissue Mobilization quad Body Location lat border Mobilization Type Rolling,Strumming Intensity/Depth Moderate Body Position Hooklying Joint Mobilizations tib fem Joint R Direction IR tibia Neuro Re-Education Treatment Balance Activities SLS Details B trials Comments focus on no hip shear in mirror PT-OP-S Aquatic Treatment Start: 03/28/21 15:11 Freq: Status: Active Protocol: Document 03/28/21 15:12 MARBELLA (Rec: 03/28/21 15:32 [id number]) Aquatics Treatment Pool Entry/Exit Pool Entry/Exit Method Stairs Assistance Independent Water Walking [place] March Water Level Chest Level Marching Water Level Chest Level jogging Water Level Chest Level fwd, back, side 2 side Water Level Chest Level Lower Extremity Exercises HS jog Water Level Chest Level Reps/Duration 2 laps Comments cue for gentle landing 4 way hip Details at wall Body Position Standing Water Level Chest Level Reps/Duration 2 x 10 each B SLS Details bilateral Body Position Standing Water Level Waist Level Reps/Duration 4 min Comments opposite LE movement for destabilizing jacks-jills Water Level Chest Level Comments intervals with CC ski shallow CC ski in place Water Level Chest Level Comments intervals with jacks Lower Extremity Stretches quad, HS, hip flexors, gastroc Details at wall Body Position Standing Water Level Waist Level Reps/Duration 2 x 30 ea Balance step up/down Body Position Standing Water Level Chest Level Reps/Duration 5x each LE Comments cues fo rcore stab and glute tightening Kismet Activities Kismet Activities Bicycle,Cross [place],Hip Abduction/Adduction,Sit Kicks Equipment belt Duration 12 Comments pt able to maintain vertical PT-OP-T Assessment and Plan Start: 03/10/21 17:44 Freq: Status: Active Protocol: Document 03/28/21 15:12 MARBELLA (Rec: 03/28/21 15:32 MARBELLA [id number]) Physical Therapy Assessment Rehab Potential Rehabilitation Potential Good Evaluation Complexity Number of Personal Factors/Comorbidities 3 or More Number of Body Systems Impaired 4 or More Clinical Presentation at Evaluation Stable Impairments Impairments Activity Tolerance,Balance, Functional Activities, Functional Mobility,Gait,Pain, Posture,ROM,Soft Tissue Mobility,Strength Goals ROM Tree Inspector Goal (LTG) Pt will improve knee ROM to at least 4-115 to allow for improved gait mechanics and tolerance to stairs. LTG Duration 05/09/21 balance Tree Inspector Goal (LTG) Pt will be able to do at least 12 sec SLS w/o lat shear of hips B in order to show improved balance and stability in the community and improve her gait mechanics. LTG Duration 05/09/21 stairs Short Term Goal (STG) Pt will be able to ascend stairs without rail reciprocally w/o pain STG Duration 04/11/21 Mcc Goal (LTG) Pt will be able to consistatnly descend stairs reciprocally w/o pain w/min rail use LTG Duration 05/09/21 strength Short Term Goal (STG) PT will be indep w/HEP for aquatic and land exercises in order to have appropriate fitness program to dec knee pain and manage weight to help w/knee pain. STG Duration 04/11/21 Mcc Goal (LTG) pt will have at least 4+/5 LE strength in all planes and at least 3/5 LPM in all planes to show improvement in strength in order to allow improved ability for mobility. LTG Duration 05/09/21 LEFS Impairment 49/80 Tree Inspector Goal (LTG) Pt will improve LEFS score to at least 60/80 to show improved functional ability. LTG Duration 05/10/21 Assessment Summary Assessment AQUATICS: Pt did well with all exercises. She shows good coordination in shallow and deep water. She would like a HEP to use at her daughter's pool after learning some exercises from therapy. Physical Therapy Plan Frequency and Duration Frequency of Treatment 1-2x/week Duration of Treatment 2 months Plan of Care Start Date 03/11/21 Plan of Care End Date 05/09/21 Therapeutic Interventions Therapeutic Interventions Aquatic Therapy,Balance Training,Gait Training,Home Exercise Program,Joint Mobilizations,Manual Therapy, Neuromuscular Re-education, Patient/Caregiver Education, Self-Care/Home Management,Soft Tissue Mobilization,Taping, Therapeutic Activities, Therapeutic Exercises Modalities Cold Pack/Ice Massage,Electric Stimulation,Hot Packs, Infrared Therapy,Ultrasound Next Visit Focus/Plan Next Note Type Treatment Note Next Visit Plan review step ups, squats, side steps, cont to work on thigh and knee mobility AQUATICS: Progress pt as tolerated.
--- NOTE | 2021-04-14 12:19 | PT.OPPOC ---
Addendum entered and electronically signed by Anjana Mullins, PT 05/05/21 10:42: POC dates should be 04/14/21-06/12/21 Original Note: Physical, Occupational & Speech Therapy At [facility] Current Diagnoses Bilateral primary osteoarthritis of knee (04/14/21) Difficulty in walking, not elsewhere classified (04/14/21) Weakness (04/14/21) Visit Care Team Role Provider Type Lily Antunez ND Family Provider Non-Staff Primary Care Provider Specialty: Naturopathy Address: [address] [place] [address], [facility] Email: Earnest Florentino MD Attending Provider Non-Staff Referring Provider Specialty: Orthopedics Address: [address] [place] [address], [id number] Email: Plan Of Care PT-OP-T Assessment and Plan Start: 03/10/21 17:44 Freq: Status: Active Protocol: Document 04/14/21 09:45 [facility] (Rec: 04/14/21 12:18 [facility] [id number]) Physical Therapy Assessment Goals ROM Receiving Associate Goal (LTG) Pt will improve knee ROM to at least 4-115 to allow for improved gait mechanics and tolerance to stairs. 04/14-L improved LTG Duration 06/12/21 balance Residential Goal (LTG) Pt will be able to do at least 12 sec SLS w/o lat shear of hips B in order to show improved balance and stability in the community and improve her gait mechanics. 27 dec lean and use of UEs LTG Duration 06/12/21 stairs Short Term Goal (STG) Pt will be able to ascend stairs without rail reciprocally w/o pain 04/14-still difficult since reinjury STG Duration 05/12/21 Receiving Associate Goal (LTG) Pt will be able to consistatnly descend stairs reciprocally w/o pain w/min rail use LTG Duration 06/12/21 strength Short Term Goal (STG) PT will be indep w/HEP for aquatic and land exercises in order to have appropriate fitness program to dec knee pain and manage weight to help w/knee pain. STG Duration achieved and progressing as pt able Receiving Associate Goal (LTG) pt will have at least 4+/5 LE strength in all planes and at least 3/5 LPM in all planes to show improvement in strength in order to allow improved ability for mobility. 04/14-improved L LTG Duration 06/12/21 LEFS Impairment 49/80 Receiving Associate Goal (LTG) Pt will improve LEFS score to at least 60/80 to show improved functional ability. 04/14 improved to 51/80 LTG Duration 06/12/21 Assessment Summary Assessment Pt was doing well before going on vacation but while on vacation after getting up from really low toilet, she took a couple steps and had sharp R knee pain and was limping for 6 days prior to feeling improvement in gait. She did exercises in pool on vacation to improve this pain, but her R knee still feels unstable. She showed improved strength and range in L knee today but R knee showed less progress likely d/t re-injury while on vaction 1.5 weeks ago. She was doing well and has noted significant benefit w/PT up to this point. Pt would benefit from cont PT in order to cont to work on balance, gait, strength and ROM to improve her functional ability. Physical Therapy Plan Frequency and Duration Frequency of Treatment 1-2x/week Duration of Treatment 2 months Plan of Care Start Date 03/11/21 Plan of Care End Date 05/09/21 Therapeutic Interventions Therapeutic Interventions Aquatic Therapy,Balance Training,Gait Training,Home Exercise Program,Joint Mobilizations,Manual Therapy, Neuromuscular Re-education, Patient/Caregiver Education, Self-Care/Home Management,Soft Tissue Mobilization,Taping, Therapeutic Activities, Therapeutic Exercises Modalities Cold Pack/Ice Massage,Electric Stimulation,Hot Packs, Infrared Therapy,Ultrasound Next Visit Focus/Plan Next Note Type Treatment Note Next Visit Plan review step ups, squats, side steps, cont to work on thigh and knee mobility AQUATICS: Progress pt as tolerated. Plan of Care Dates Plan of Care Start Date 03/11/21 Plan of Care End Date 05/09/21 Electronically Signed by: Anjana Mullins, PT 04/14/21 [id number] Please Sign and Return: I have reviewed this Plan of Care and certify that the skilled therapy services above are required to meet the patient?s needs. Physician Signature Date Printed Name and Credentials Clinical Instructor Signature Printed Name and Credentials
--- NOTE | 2021-04-16 15:08 | PT.OTN ---
Current Diagnoses Bilateral primary osteoarthritis of knee (04/16/21) Difficulty in walking, not elsewhere classified (04/16/21) Weakness (04/16/21) Physical Therapy Treatment Note PT-OP-A Visit Information Start: 03/10/21 17:44 Freq: Status: Active Protocol: Document 04/16/21 14:49 LJ (Rec: 04/16/21 15:08 LJ [id number]) Out-Patient Physical Therapy Visit Information Visit Information Visit Type Aquatic Treatment Note Visit Start Time 10:15 Visit Stop Time 11:00 Total Visit Minutes 45 Visit Number 6 Number of ROLL OVER LOADER Visits 1 PT-OP-B Current Condition Start: 03/10/21 17:44 Freq: Status: Active Protocol: Document 03/11/21 09:51 LR (Rec: 03/11/21 10:34 [facility] [id number]) Current Condition History of Current Condition Onset Date at least 11 years ago. Current Complaints B knee pain History of Current Condition Pt reports with medication her knee pain is under control. She has lost 100 lbs and that has helped along w/working w/ operations trainer but w/COVID she isn't working now. She is girotonics and taht has helped a lot. Pt reports she was diagnosed w/ OA 11 years ago. said there is some bone on bone but was not at the point for needing a knee replacement. It is hard for her to go down stairs and needs a rail for up/down. UP typically doesn't hurt. Pt reports if she has to stand for a couple hours in the kitchen her knees hurt which is common d/t her large family . She is able to make pain more managable if she sits down for a couple min during cooking. Pt reports R knee is worse than the left and it will swell something. Sometimes she feels like there is something muscular. Her quad and HS can bother her but the girotonics has helped. She goes once a week to the girotonics operations trainer. It is supposed to strengthen and improve flexibility. Notes she has not been working out as much recently. SHe has access to a pool and wants to start working out and using the pool more often. Pt reports she did have COVID about 1 year ago and some sideaffects she had was a really bad backache and GRIMM. Since then every now and then she gets the back pain and typically gets some shoulder tightness Pt reports every once in a while her L hip will her bug her, especailly the last couple of days. She sleeps on her side and/or back. Pt has history of gallbladder and C-sections. Pt has a stationary bike and outdoor bike that she plans to use. When she was going to her operations trainer, she did the treadmill, rowed, and did weights/squats. Pt reports d/t severe pain in heel, she had surgery for lengthening of tendon on the bottom of foot but not positive of foot and that improved it. She thinks maybe left Prior Treatments and Tests Xrays done showing OA; 1 injection 11 years ago that helped Treatment Goals Patient/Caregiver Goals Be able to work out w/o knee pain(bike, pool and lifting) to be able to lose at least 50 more 50lbs, be able to do stairs better(right now has to do step to w/o rail up and step to all the time down) PT-OP-C Subjective Start: 03/10/21 17:44 Freq: Status: Active Protocol: Document 04/16/21 14:49 (Rec: 04/16/21 15:08 [id number]) OP-PT Subjective Patient Comments Patient Comments Pt reports that her knee pain is less than Wednesday when she was last seen at the clinic. She states the top of the right thigh and on the lateral side of the thigh feels tight particularly when the leg is straight. While on vacation, pt [place] exercises [place] pool. PT-OP-D Balance Start: 03/10/21 17:44 Freq: Status: Active Protocol: Document 04/14/21 09:45 [facility] (Rec: 04/14/21 12:18 [facility] [id number]) Balance Tests Single Limb Standing Single Limb- Right 12 sec w/minor lat lean Single Limb- Left 10 sec PT-OP-F Manual Assessment Start: 03/10/21 17:44 Freq: Status: Active Protocol: Document 03/11/21 09:51 [facility] (Rec: 03/11/21 10:34 [facility] [id number]) Manual Assessments Joint Mobility Assessment Joint Mobility Assessment B Varus knees & rear foot B, bunion L>R, IR of femur B, ER of tibia L>R, knee goes into IR R w/knee flex, flat arch PT-OP-G Mobility & Gait Start: 03/10/21 17:44 Freq: Status: Active Protocol: Document 03/11/21 09:51 [facility] (Rec: 03/11/21 10:34 [facility] [id number]) OP Gait Assessment Comments Gait Comments Amb w/dec push off R>L, lat lean over R w/WB significant, add of L PT-OP-J Posture/Palpation/Skin Start: 03/10/21 17:44 Freq: Status: Active Protocol: Document 03/11/21 09:51 [facility] (Rec: 03/11/21 10:34 [facility] [id number]) Posture Evaluation [facility] Postural Classification System Lumbar Protective Mechanism Left AP 0 Lumbar Protective Mechanism Right AP 1 Lumbar Protective Mechanism Left PA 1 Lumbar Protective Mechanism Right PA 0 PT-OP-K Range of Motion Start: 03/10/21 17:44 Freq: Status: Active Protocol: Document 04/14/21 09:45 [facility] (Rec: 04/14/21 12:18 [facility] [id number]) Knee Goniometric Range of Motion Knee Right Flexion Active (degrees) 103 Extension Active (degrees) 15 Comments discomfort flex & ext Left Flexion Active (degrees) 115 Extension Active (degrees) 5 PT-OP-L Special Tests Start: 03/10/21 17:44 Freq: Status: Active Protocol: Document 03/11/21 09:51 [facility] (Rec: 03/11/21 10:34 [facility] [id number]) Special Tests Knee Special Tests Hamstring Test Results mild-mod tightness B PT-OP-M Strength Start: 03/10/21 17:44 Freq: Status: Active Protocol: Document 04/14/21 09:45 [facility] (Rec: 04/14/21 12:18 [facility] [id number]) Hip Strength Hip Manual Muscle Testing Right Flexion (L2) 4 Good Extension (S1) 4 Good Abduction 4 Good Adduction 3+ Fair+ External Rotation 3+ Fair+ Internal Rotation 3+ Fair+ Left Flexion (L2) 4 Good Extension (S1) 4 Good Abduction 4- Good- Adduction 4 Good External Rotation 4 Good Internal Rotation 4+ Good+ Knee Strength Knee Manual Muscle Testing Right Flexion (S2) 4+ Good+ Extension (L3) 4- Good- Left Flexion (S2) 5 Normal Extension (L3) 4+ Good+ Ankle/Foot Strength Ankle and Foot Manual Muscle Testing Right Dorsiflexion (L4) 5 Normal Plantarflexion (S1) 5 Normal Comments 20 heel raises B w/inversion Left Dorsiflexion (L4) 5 Normal Plantarflexion (S1) 5 Normal PT-OP-Q Treatments Start: 03/10/21 17:44 Freq: Status: Active Protocol: Document 04/14/21 09:45 [facility] (Rec: 04/14/21 12:18 [facility] [id number]) Manual Therapy Treatment Soft Tissue Mobilization quad Body Location lat border & quad tendon Mobilization Type Rolling,Strumming Intensity/Depth Moderate Body Position Hooklying Joint Mobilizations tib fem Comments 1. R tibia IR FM 2. R tibia AP FM PT-OP-S Aquatic Treatment Start: 03/28/21 15:11 Freq: Status: Active Protocol: Document 04/16/21 14:49 LJ (Rec: 04/16/21 15:08 LJ [id number]) Aquatics Treatment Pool Entry/Exit Pool Entry/Exit Method Stairs Assistance Independent Water Walking [place] March Water Level Chest Level Marching Water Level Chest Level jogging Water Level Chest Level fwd, back, side 2 side Water Level Chest Level Lower Extremity Exercises squats Details at wall Body Position Standing Water Level Waist Level Reps/Duration 15 Comments vc for mechanics knee extension Details at wall Body Position Standing Water Level Waist Level Reps/Duration 2x[address] hip Details at wall Body Position Standing Water Level Chest Level Reps/Duration 2 x 10 each B SLS Details bilateral Body Position Standing Water Level Waist Level Reps/Duration 4 min Comments opposite LE movement for destabilizing Lower Extremity Stretches TFL Details at wall; right side Body Position Standing Water Level Waist Level Reps/Duration 30 sec x2 free the hip Body Position Supine Reps/Duration 8 B quad, HS, hip flexors, gastroc Details at wall Body Position Standing Water Level Waist Level Reps/Duration 2 x 30 ea Balance step up/down Body Position Standing Water Level Chest Level Reps/Duration 5x each LE Comments cues fo rcore stab and glute tightening Foster Activities Foster Activities Bicycle,Bicycle Backwards, Cross Country,Running,Hip Abduction/Adduction,Sit Kicks Other Activities pendulum knee tuck Equipment belt, med BBs Duration 20 Comments pt able to maintain vertical Manual Techniques Aquatic Massage Aqua Stretch right distal TFL ball rolling on quads and TFL against wall PT-OP-T Assessment and Plan Start: 03/10/21 17:44 Freq: Status: Active Protocol: Document 04/16/21 14:49 [facility] (Rec: 04/16/21 15:08 [facility] [id number]) Physical Therapy Assessment Rehab Potential Rehabilitation Potential Good Evaluation Complexity Number of Personal Factors/Comorbidities 3 or More Number of Body Systems Impaired 4 or More Clinical Presentation at Evaluation Stable Impairments Impairments Activity Tolerance,Balance, Functional Activities, Functional Mobility,Gait,Pain, Posture,ROM,Soft Tissue Mobility,Strength Goals ROM Bioinformatics Developer Goal (LTG) Pt will improve knee ROM to at least 4-115 to allow for improved gait mechanics and tolerance to stairs. 04/14-L improved LTG Duration 06/12/21 balance Bioinformatics Developer Goal (LTG) Pt will be able to do at least 12 sec SLS w/o lat shear of hips B in order to show improved balance and stability in the community and improve her gait mechanics. 04/14 dec lean and use of UEs LTG Duration 06/12/21 stairs Short Term Goal (STG) Pt will be able to ascend stairs without rail reciprocally w/o pain 04/14-still difficult since reinjury STG Duration 05/12/21 Nursing Home Goal (LTG) Pt will be able to consistatnly descend stairs reciprocally w/o pain w/min rail use LTG Duration 06/12/21 strength Short Term Goal (STG) PT will be indep w/HEP for aquatic and land exercises in order to have appropriate fitness program to dec knee pain and manage weight to help w/knee pain. STG Duration achieved and progressing as pt able Nursing Home Goal (LTG) pt will have at least 4+/5 LE strength in all planes and at least 3/5 LPM in all planes to show improvement in strength in order to allow improved ability for mobility. 04/14-improved L LTG Duration 06/12/21 LEFS Impairment 49/80 Nursing Home Goal (LTG) Pt will improve LEFS score to at least 60/80 to show improved functional ability. 04/14 improved to 51/80 LTG Duration 06/12/21 Assessment Summary Assessment Pt reported several painful areas in TFL with Aqua Stretch and ball rolling. Instructed her to do same method at home. No complaint of increased pain with milder exercises without impact as opposed to last session when she was able to perform jacks and CC ski which involve light impact. Pt will benefit from AT HEP to use at her pool to improve strength and mobility Physical Therapy Plan Frequency and Duration Frequency of Treatment 1-2x/week Duration of Treatment 2 months Plan of Care Start Date 03/11/21 Plan of Care End Date 05/09/21 Therapeutic Interventions Therapeutic Interventions Aquatic Therapy,Balance Training,Gait Training,Home Exercise Program,Joint Mobilizations,Manual Therapy, Neuromuscular Re-education, Patient/Caregiver Education, Self-Care/Home Management,Soft Tissue Mobilization,Taping, Therapeutic Activities, Therapeutic Exercises Modalities Cold Pack/Ice Massage,Electric Stimulation,Hot Packs, Infrared Therapy,Ultrasound Next Visit Focus/Plan Next Note Type Treatment Note Next Visit Plan review step ups, squats, side steps, cont to work on thigh and knee mobility AQUATICS: Progress pt as tolerated. Reintroduce impact exercises when appropriate.
--- NOTE | 2021-04-21 11:48 | PT.OTN ---
Current Diagnoses Bilateral primary osteoarthritis of knee (04/21/21) Difficulty in walking, not elsewhere classified (04/21/21) Weakness (04/21/21) Physical Therapy Treatment Note PT-OP-A Visit Information Start: 03/10/21 17:44 Freq: Status: Active Protocol: Document 04/21/21 10:55 [facility] (Rec: 04/21/21 11:47 [facility] [id number]) Out-Patient Physical Therapy Visit Information Visit Information Visit Type Treatment Note Visit Start Time 10:35 Visit Stop Time 11:20 Total Visit Minutes 45 Visit Number 7 Number of SALESPERSON NECKTIES Visits 0 PT-OP-B Current Condition Start: 03/10/21 17:44 Freq: Status: Active Protocol: Document 03/11/21 09:51 [facility] (Rec: 03/11/21 10:34 [facility] [id number]) Current Condition History of Current Condition Onset Date at least 11 years ago. Current Complaints B knee pain History of Current Condition Pt reports with medication her knee pain is under control. She has lost 100 lbs and that has helped along w/working w/ national sales trainer but w/COVID she isn't working now. She is girotonics and taht has helped a lot. Pt reports she was diagnosed w/ OA 11 years ago. said there is some bone on bone but was not at the point for needing a knee replacement. It is hard for her to go down stairs and needs a rail for up/down. UP typically doesn't hurt. Pt reports if she has to stand for a couple hours in the kitchen her knees hurt which is common d/t her large family . She is able to make pain more managable if she sits down for a couple min during cooking. Pt reports R knee is worse than the left and it will swell something. Sometimes she feels like there is something muscular. Her quad and HS can bother her but the girotonics has helped. She goes once a week to the girotonics national sales trainer. It is supposed to strengthen and improve flexibility. Notes she has not been working out as much recently. SHe has access to a pool and wants to start working out and using the pool more often. Pt reports she did have COVID about 1 year ago and some sideaffects she had was a really bad backache and GRIMM. Since then every now and then she gets the back pain and typically gets some shoulder tightness Pt reports every once in a while her L hip will her bug her, especailly the last couple of days. She sleeps on her side and/or back. Pt has history of gallbladder and C-sections. Pt has a stationary bike and outdoor bike that she plans to use. When she was going to her national sales trainer, she did the treadmill, rowed, and did weights/squats. Pt reports d/t severe pain in heel, she had surgery for lengthening of tendon on the bottom of foot but not positive of foot and that improved it. She thinks maybe left Prior Treatments and Tests Xrays done showing OA; 1 injection 11 years ago that helped Treatment Goals Patient/Caregiver Goals Be able to work out w/o knee pain(bike, pool and lifting) to be able to lose at least 50 more 50lbs, be able to do stairs better(right now has to do step to w/o rail up and step to all the time down) PT-OP-C Subjective Start: 03/10/21 17:44 Freq: Status: Active Protocol: Document 04/21/21 10:55 [facility] (Rec: 04/21/21 11:47 [facility] [id number]) OP-PT Subjective Patient Comments Patient Comments Pt reports she was feeling better after last session, but R knee is sore after Wednesday/ Sat doing a [employer] party for all her grandchildren so she was up on her feet a lot and up/down from the floor. notes it is better today though, but still feels sore and tight. Notes it feels like it caught in ant med knee PT-OP-D Balance Start: 03/10/21 17:44 Freq: Status: Active Protocol: Document 04/14/21 09:45 [facility] (Rec: 04/14/21 12:18 [facility] [id number]) Balance Tests Single Limb Standing Single Limb- Right 12 sec w/minor lat lean Single Limb- Left 10 sec PT-OP-F Manual Assessment Start: 03/10/21 17:44 Freq: Status: Active Protocol: Document 03/11/21 09:51 [facility] (Rec: 03/11/21 10:34 [facility] [id number]) Manual Assessments Joint Mobility Assessment Joint Mobility Assessment B Varus knees & rear foot B, bunion L>R, IR of femur B, ER of tibia L>R, knee goes into IR R w/knee flex, flat arch PT-OP-G Mobility & Gait Start: 03/10/21 17:44 Freq: Status: Active Protocol: Document 03/11/21 09:51 [facility] (Rec: 03/11/21 10:34 [facility] [id number]) OP Gait Assessment Comments Gait Comments Amb w/dec push off R>L, lat lean over R w/WB significant, add of L PT-OP-J Posture/Palpation/Skin Start: 03/10/21 17:44 Freq: Status: Active Protocol: Document 03/11/21 09:51 [facility] (Rec: 03/11/21 10:34 [facility] [id number]) Posture Evaluation [facility] Postural Classification System Lumbar Protective Mechanism Left AP 0 Lumbar Protective Mechanism Right AP 1 Lumbar Protective Mechanism Left PA 1 Lumbar Protective Mechanism Right PA 0 PT-OP-K Range of Motion Start: 03/10/21 17:44 Freq: Status: Active Protocol: Document 04/14/21 09:45 [facility] (Rec: 04/14/21 12:18 [facility] [id number]) Knee Goniometric Range of Motion Knee Right Flexion Active (degrees) 103 Extension Active (degrees) 15 Comments discomfort flex & ext Left Flexion Active (degrees) 115 Extension Active (degrees) 5 PT-OP-L Special Tests Start: 03/10/21 17:44 Freq: Status: Active Protocol: Document 03/11/21 09:51 [facility] (Rec: 03/11/21 10:34 [facility] [id number]) Special Tests Knee Special Tests Hamstring Test Results mild-mod tightness B PT-OP-M Strength Start: 03/10/21 17:44 Freq: Status: Active Protocol: Document 04/14/21 09:45 [facility] (Rec: 04/14/21 12:18 [facility] [id number]) Hip Strength Hip Manual Muscle Testing Right Flexion (L2) 4 Good Extension (S1) 4 Good Abduction 4 Good Adduction 3+ Fair+ External Rotation 3+ Fair+ Internal Rotation 3+ Fair+ Left Flexion (L2) 4 Good Extension (S1) 4 Good Abduction 4- Good- Adduction 4 Good External Rotation 4 Good Internal Rotation 4+ Good+ Knee Strength Knee Manual Muscle Testing Right Flexion (S2) 4+ Good+ Extension (L3) 4- Good- Left Flexion (S2) 5 Normal Extension (L3) 4+ Good+ Ankle/Foot Strength Ankle and Foot Manual Muscle Testing Right Dorsiflexion (L4) 5 Normal Plantarflexion (S1) 5 Normal Comments 20 heel raises B w/inversion Left Dorsiflexion (L4) 5 Normal Plantarflexion (S1) 5 Normal PT-OP-Q Treatments Start: 03/10/21 17:44 Freq: Status: Active Protocol: Document 04/21/21 10:55 [facility] (Rec: 04/21/21 11:47 [facility] [id number]) Therapeutic Exercises Supine Exercises SLR Supine Exercise Name core focus Side right Reps/Minutes 8 Comments max cues fro back and core bridge Supine Exercise Name focus on core & glutes Side bilateral Reps/Minutes 10 sec x8 Comments cues to hold for 10 sec and arms off mat to inc difficulty Sitting Exercises roll out Sitting Exercise Name ITB & quads Side right Reps/Minutes 3min Standing Exercises stretch Standing Exercise Name quad stretch w/RLE on chair Side right Reps/Minutes 1 min squats Standing Exercise Name mini Side bilateral Equipment Used w/chair behind Reps/Minutes 10 Comments cues for glutes and stand all the way straight up sidesteps Standing Exercise Name cues for core tight and not lat lean Side bilateral Equipment Used L1 Reps/Minutes 20ftx2 Manual Therapy Treatment Joint Mobilizations patellofemoral Joint R Direction med, inf, sup Comments II-III tib fem Comments 1. R tibia IR FM Taping KT Body Location 3 Y Treatment Focus for med tracking Type of Tape Kinesio Tape PT-OP-S Aquatic Treatment Start: 03/28/21 15:11 Freq: Status: Active Protocol: Document 04/16/21 14:49 [facility] (Rec: 04/16/21 15:08 LJ [id number]) Aquatics Treatment Pool Entry/Exit Pool Entry/Exit Method Stairs Assistance Independent Water Walking [place] March Water Level Chest Level Marching Water Level Chest Level jogging Water Level Chest Level fwd, back, side 2 side Water Level Chest Level Lower Extremity Exercises squats Details at wall Body Position Standing Water Level Waist Level Reps/Duration 15 Comments vc for mechanics knee extension Details at wall Body Position Standing Water Level Waist Level Reps/Duration 2x[address] hip Details at wall Body Position Standing Water Level Chest Level Reps/Duration 2 x 10 each B SLS Details bilateral Body Position Standing Water Level Waist Level Reps/Duration 4 min Comments opposite LE movement for destabilizing Lower Extremity Stretches TFL Details at wall; right side Body Position Standing Water Level Waist Level Reps/Duration 30 sec x2 free the hip Body Position Supine Reps/Duration 8 B quad, HS, hip flexors, gastroc Details at wall Body Position Standing Water Level Waist Level Reps/Duration 2 x 30 ea Balance step up/down Body Position Standing Water Level Chest Level Reps/Duration 5x each LE Comments cues fo rcore stab and glute tightening [place]ler Activities [place]ler Activities Bicycle,Bicycle Backwards, Cross Country,Running,Hip Abduction/Adduction,Sit Kicks Other Activities pendulum knee tuck Equipment belt, med BBs Duration 20 Comments pt able to maintain vertical Manual Techniques Aquatic Massage Aqua Stretch right distal TFL ball rolling on quads and TFL against wall PT-OP-T Assessment and Plan Start: 03/10/21 17:44 Freq: Status: Active Protocol: Document 04/21/21 10:55 [facility] (Rec: 04/21/21 11:47 [facility] [id number]) Physical Therapy Assessment Goals ROM [facility] Goal (LTG) Pt will improve knee ROM to at least 4-115 to allow for improved gait mechanics and tolerance to stairs. 2-L improved LTG Duration 06/12/21 balance Knot Tier Goal (LTG) Pt will be able to do at least 12 sec SLS w/o lat shear of hips B in order to show improved balance and stability in the community and improve her gait mechanics. 27 dec lean and use of UEs LTG Duration 06/12/21 stairs Short Term Goal (STG) Pt will be able to ascend stairs without rail reciprocally w/o pain 04/14-still difficult since reinjury STG Duration 05/12/21 [facility] Goal (LTG) Pt will be able to consistatnly descend stairs reciprocally w/o pain w/min rail use LTG Duration 06/12/21 strength Short Term Goal (STG) PT will be indep w/HEP for aquatic and land exercises in order to have appropriate fitness program to dec knee pain and manage weight to help w/knee pain. STG Duration achieved and progressing as pt able [facility] Goal (LTG) pt will have at least 4+/5 LE strength in all planes and at least 3/5 LPM in all planes to show improvement in strength in order to allow improved ability for mobility. 04/14-improved L LTG Duration 06/12/21 LEFS Impairment 49/80 [facility] Goal (LTG) Pt will improve LEFS score to at least 60/80 to show improved functional ability. 04/14 improved to 51/80 LTG Duration 06/12/21 Assessment Summary Assessment Pt felt better after manual treatment today noting knee felt looser. She required some cueing w/exercises so may requrie more review and plan to progress more on working on gait mechanics. Physical Therapy Plan Frequency and Duration Frequency of Treatment 1-2x/week Duration of Treatment 2 months Plan of Care Start Date 03/11/21 Plan of Care End Date 05/09/21 Next Visit Focus/Plan Next Note Type Treatment Note Next Visit Plan review step ups and work on wt shifts in standing AQUATICS: Progress pt as tolerated. Reintroduce impact exercises when appropriate.
--- NOTE | 2021-04-23 14:35 | PT.OTN ---
Current Diagnoses Bilateral primary osteoarthritis of knee (04/21/21) Difficulty in walking, not elsewhere classified (04/21/21) Weakness (04/21/21) Physical Therapy Treatment Note PT-OP-A Visit Information Start: 03/10/21 17:44 Freq: Status: Active Protocol: Document 04/23/21 14:28 LJ (Rec: 04/23/21 14:35 LJ [id number]) Out-Patient Physical Therapy Visit Information Visit Information Visit Type Aquatic Treatment Note Visit Start Time 10:30 Visit Stop Time 11:00 Total Visit Minutes 30 Visit Number 8 Number of FORGING ENGINEER Visits 1 PT-OP-B Current Condition Start: 03/10/21 17:44 Freq: Status: Active Protocol: Document 03/11/21 09:51 LR (Rec: 03/11/21 10:34 [facility] [id number]) Current Condition History of Current Condition Onset Date at least 11 years ago. Current Complaints B knee pain History of Current Condition Pt reports with medication her knee pain is under control. She has lost 100 lbs and that has helped along w/working w/ equestrian trainer but w/COVID she isn't working now. She is girotonics and taht has helped a lot. Pt reports she was diagnosed w/ OA 11 years ago. said there is some bone on bone but was not at the point for needing a knee replacement. It is hard for her to go down stairs and needs a rail for up/down. UP typically doesn't hurt. Pt reports if she has to stand for a couple hours in the kitchen her knees hurt which is common d/t her large family . She is able to make pain more managable if she sits down for a couple min during cooking. Pt reports R knee is worse than the left and it will swell something. Sometimes she feels like there is something muscular. Her quad and HS can bother her but the girotonics has helped. She goes once a week to the girotonics equestrian trainer. It is supposed to strengthen and improve flexibility. Notes she has not been working out as much recently. SHe has access to a pool and wants to start working out and using the pool more often. Pt reports she did have COVID about 1 year ago and some sideaffects she had was a really bad backache and GRIMM. Since then every now and then she gets the back pain and typically gets some shoulder tightness Pt reports every once in a while her L hip will her bug her, especailly the last couple of days. She sleeps on her side and/or back. Pt has history of gallbladder and C-sections. Pt has a stationary bike and outdoor bike that she plans to use. When she was going to her equestrian trainer, she did the treadmill, rowed, and did weights/squats. Pt reports d/t severe pain in heel, she had surgery for lengthening of tendon on the bottom of foot but not positive of foot and that improved it. She thinks maybe left Prior Treatments and Tests Xrays done showing OA; 1 injection 11 years ago that helped Treatment Goals Patient/Caregiver Goals Be able to work out w/o knee pain(bike, pool and lifting) to be able to lose at least 50 more 50lbs, be able to do stairs better(right now has to do step to w/o rail up and step to all the time down) PT-OP-C Subjective Start: 03/10/21 17:44 Freq: Status: Active Protocol: Document 04/23/21 14:28 LJ (Rec: 04/23/21 14:35 [id number]) OP-PT Subjective Patient Comments Patient Comments Pt reports her knee pain in only at night when she's trying to sleep. No pain with WB or fl/ex. States it feels tight. PT-OP-D Balance Start: 03/10/21 17:44 Freq: Status: Active Protocol: Document 04/14/21 09:45 [facility] (Rec: 04/14/21 12:18 [facility] [id number]) Balance Tests Single Limb Standing Single Limb- Right 12 sec w/minor lat lean Single Limb- Left 10 sec PT-OP-F Manual Assessment Start: 03/10/21 17:44 Freq: Status: Active Protocol: Document 03/11/21 09:51 LR (Rec: 03/11/21 10:34 [facility] [id number]) Manual Assessments Joint Mobility Assessment Joint Mobility Assessment B Varus knees & rear foot B, bunion L>R, IR of femur B, ER of tibia L>R, knee goes into IR R w/knee flex, flat arch PT-OP-G Mobility & Gait Start: 03/10/21 17:44 Freq: Status: Active Protocol: Document 03/11/21 09:51 [facility] (Rec: 03/11/21 10:34 [facility] [id number]) OP Gait Assessment Comments Gait Comments Amb w/dec push off R>L, lat lean over R w/WB significant, add of L PT-OP-J Posture/Palpation/Skin Start: 03/10/21 17:44 Freq: Status: Active Protocol: Document 03/11/21 09:51 [facility] (Rec: 03/11/21 10:34 [facility] [id number]) Posture Evaluation [facility] Postural Classification System Lumbar Protective Mechanism Left AP 0 Lumbar Protective Mechanism Right AP 1 Lumbar Protective Mechanism Left PA 1 Lumbar Protective Mechanism Right PA 0 PT-OP-K Range of Motion Start: 03/10/21 17:44 Freq: Status: Active Protocol: Document 04/14/21 09:45 [facility] (Rec: 04/14/21 12:18 [facility] [id number]) Knee Goniometric Range of Motion Knee Right Flexion Active (degrees) 103 Extension Active (degrees) 15 Comments discomfort flex & ext Left Flexion Active (degrees) 115 Extension Active (degrees) 5 PT-OP-L Special Tests Start: 03/10/21 17:44 Freq: Status: Active Protocol: Document 03/11/21 09:51 [facility] (Rec: 03/11/21 10:34 [facility] [id number]) Special Tests Knee Special Tests Hamstring Test Results mild-mod tightness B PT-OP-M Strength Start: 03/10/21 17:44 Freq: Status: Active Protocol: Document 04/14/21 09:45 [facility] (Rec: 04/14/21 12:18 [facility] [id number]) Hip Strength Hip Manual Muscle Testing Right Flexion (L2) 4 Good Extension (S1) 4 Good Abduction 4 Good Adduction 3+ Fair+ External Rotation 3+ Fair+ Internal Rotation 3+ Fair+ Left Flexion (L2) 4 Good Extension (S1) 4 Good Abduction 4- Good- Adduction 4 Good External Rotation 4 Good Internal Rotation 4+ Good+ Knee Strength Knee Manual Muscle Testing Right Flexion (S2) 4+ Good+ Extension (L3) 4- Good- Left Flexion (S2) 5 Normal Extension (L3) 4+ Good+ Ankle/Foot Strength Ankle and Foot Manual Muscle Testing Right Dorsiflexion (L4) 5 Normal Plantarflexion (S1) 5 Normal Comments 20 heel raises B w/inversion Left Dorsiflexion (L4) 5 Normal Plantarflexion (S1) 5 Normal PT-OP-Q Treatments Start: 03/10/21 17:44 Freq: Status: Active Protocol: Document 04/21/21 10:55 [facility] (Rec: 04/21/21 11:47 [facility] [id number]) Therapeutic Exercises Supine Exercises SLR Supine Exercise Name core focus Side right Reps/Minutes 8 Comments max cues fro back and core bridge Supine Exercise Name focus on core & glutes Side bilateral Reps/Minutes 10 sec x8 Comments cues to hold for 10 sec and arms off mat to inc difficulty Sitting Exercises roll out Sitting Exercise Name ITB & quads Side right Reps/Minutes 3min Standing Exercises stretch Standing Exercise Name quad stretch w/RLE on chair Side right Reps/Minutes 1 min squats Standing Exercise Name mini Side bilateral Equipment Used w/chair behind Reps/Minutes 10 Comments cues for glutes and stand all the way straight up sidesteps Standing Exercise Name cues for core tight and not lat lean Side bilateral Equipment Used L1 Reps/Minutes 20ftx2 Manual Therapy Treatment Joint Mobilizations patellofemoral Joint R Direction med, inf, sup Comments II-III tib fem Comments 1. R tibia IR FM Taping KT Body Location 3 Y Treatment Focus for med tracking Type of Tape Kinesio Tape PT-OP-S Aquatic Treatment Start: 03/28/21 15:11 Freq: Status: Active Protocol: Document 04/23/21 14:28 MARBELLA (Rec: 04/23/21 14:35 [id number]) Aquatics Treatment Pool Entry/Exit Pool Entry/Exit Method Stairs Assistance Independent Water Walking [place] March Water Level Chest Level Marching Water Level Chest Level jogging Water Level Chest Level fwd, back, side 2 side Water Level Chest Level Lower Extremity Exercises squats Details at wall Body Position Standing Water Level Waist Level Reps/Duration 15 knee extension Details at wall Body Position Standing Water Level Waist Level Reps/Duration 2x10 B HS jog Water Level Chest Level Reps/Duration 2 laps Comments cue for gentle landing 4 way hip Details at wall Body Position Standing Water Level Chest Level Reps/Duration 2 x 10 each B SLS Details bilateral Body Position Standing Water Level Waist Level Reps/Duration 4 min Comments opposite LE movement for destabilizing Lower Extremity Stretches TFL Details at wall; right side Body Position Standing Water Level Waist Level Reps/Duration 30 sec x2 free the hip Body Position Supine Reps/Duration 8 B quad, HS, hip flexors, gastroc Details at wall Body Position Standing Water Level Waist Level Reps/Duration 2 x 30 ea [place] Activities [place] Activities Bicycle,Bicycle Backwards, Cross Country,Hip Abduction/ Adduction Equipment belt, med BBs Duration 10 PT-OP-T Assessment and Plan Start: 03/10/21 17:44 Freq: Status: Active Protocol: Document 04/23/21 14:28 MARBELLA (Rec: 04/23/21 14:35 [id number]) Physical Therapy Assessment Rehab Potential Rehabilitation Potential Good Evaluation Complexity Number of Personal Factors/Comorbidities 3 or More Number of Body Systems Impaired 4 or More Clinical Presentation at Evaluation Stable Impairments Impairments Activity Tolerance,Balance, Functional Activities, Functional Mobility,Gait,Pain, Posture,ROM,Soft Tissue Mobility,Strength Goals ROM Snf Goal (LTG) Pt will improve knee ROM to at least 4-115 to allow for improved gait mechanics and tolerance to stairs. 2-L improved LTG Duration 06/12/21 balance Snf Goal (LTG) Pt will be able to do at least 12 sec SLS w/o lat shear of hips B in order to show improved balance and stability in the community and improve her gait mechanics. 2 dec lean and use of UEs LTG Duration 06/12/21 stairs Short Term Goal (STG) Pt will be able to ascend stairs without rail reciprocally w/o pain 2-still difficult since reinjury STG Duration 05/12/21 Slip Mixer Goal (LTG) Pt will be able to consistatnly descend stairs reciprocally w/o pain w/min rail use LTG Duration 06/12/21 strength Short Term Goal (STG) PT will be indep w/HEP for aquatic and land exercises in order to have appropriate fitness program to dec knee pain and manage weight to help w/knee pain. STG Duration achieved and progressing as pt able Snf Goal (LTG) pt will have at least 4+/5 LE strength in all planes and at least 3/5 LPM in all planes to show improvement in strength in order to allow improved ability for mobility. 2-improved L LTG Duration 06/12/21 LEFS Impairment 49/80 Snf Goal (LTG) Pt will improve LEFS score to at least 60/80 to show improved functional ability. 04/14 improved to 51/80 LTG Duration 06/12/21 Assessment Summary Assessment Pt tolerated exercises well. No pain reported. She states she most likely will not be able to make her next AT appointment. Will get together aquatic HEP to continue on her own at daughter's pool. Physical Therapy Plan Frequency and Duration Frequency of Treatment 1-2x/week Duration of Treatment 2 months Plan of Care Start Date 03/11/21 Plan of Care End Date 05/09/21 Therapeutic Interventions Therapeutic Interventions Aquatic Therapy,Balance Training,Gait Training,Home Exercise Program,Joint Mobilizations,Manual Therapy, Neuromuscular Re-education, Patient/Caregiver Education, Self-Care/Home Management,Soft Tissue Mobilization,Taping, Therapeutic Activities, Therapeutic Exercises Modalities Cold Pack/Ice Massage,Electric Stimulation,Hot Packs, Infrared Therapy,Ultrasound Next Visit Focus/Plan Next Note Type Treatment Note Next Visit Plan Review AT [facility] for continuing on her own.
--- NOTE | 2021-05-05 12:11 | PT.OTN ---
Current Diagnoses Bilateral primary osteoarthritis of knee (05/05/21) Difficulty in walking, not elsewhere classified (05/05/21) Weakness (05/05/21) Physical Therapy Treatment Note PT-OP-A Visit Information Start: 03/10/21 17:44 Freq: Status: Active Protocol: Document 05/05/21 10:34 [facility] (Rec: 05/05/21 12:11 [facility] [id number]) Out-Patient Physical Therapy Visit Information Visit Information Visit Type Treatment Note Visit Start Time 10:35 Visit Stop Time 11:15 Total Visit Minutes 40 Visit Number 9 Number of MOBILE EQUIPMENT MECHANIC Visits 0 PT-OP-B Current Condition Start: 03/10/21 17:44 Freq: Status: Active Protocol: Document 03/11/21 09:51 [facility] (Rec: 03/11/21 10:34 [facility] [id number]) Current Condition History of Current Condition Onset Date at least 11 years ago. Current Complaints B knee pain History of Current Condition Pt reports with medication her knee pain is under control. She has lost 100 lbs and that has helped along w/working w/ head athletic trainer/strength coach but w/COVID she isn't working now. She is girotonics and taht has helped a lot. Pt reports she was diagnosed w/ OA 11 years ago. said there is some bone on bone but was not at the point for needing a knee replacement. It is hard for her to go down stairs and needs a rail for up/down. UP typically doesn't hurt. Pt reports if she has to stand for a couple hours in the kitchen her knees hurt which is common d/t her large family . She is able to make pain more managable if she sits down for a couple min during cooking. Pt reports R knee is worse than the left and it will swell something. Sometimes she feels like there is something muscular. Her quad and HS can bother her but the girotonics has helped. She goes once a week to the girotonics head athletic trainer/strength coach. It is supposed to strengthen and improve flexibility. Notes she has not been working out as much recently. SHe has access to a pool and wants to start working out and using the pool more often. Pt reports she did have COVID about 1 year ago and some sideaffects she had was a really bad backache and GRIMM. Since then every now and then she gets the back pain and typically gets some shoulder tightness Pt reports every once in a while her L hip will her bug her, especailly the last couple of days. She sleeps on her side and/or back. Pt has history of gallbladder and C-sections. Pt has a stationary bike and outdoor bike that she plans to use. When she was going to her head athletic trainer/strength coach, she did the treadmill, rowed, and did weights/squats. Pt reports d/t severe pain in heel, she had surgery for lengthening of tendon on the bottom of foot but not positive of foot and that improved it. She thinks maybe left Prior Treatments and Tests Xrays done showing OA; 1 injection 11 years ago that helped Treatment Goals Patient/Caregiver Goals Be able to work out w/o knee pain(bike, pool and lifting) to be able to lose at least 50 more 50lbs, be able to do stairs better(right now has to do step to w/o rail up and step to all the time down) PT-OP-C Subjective Start: 03/10/21 17:44 Freq: Status: Active Protocol: Document 05/05/21 10:34 [facility] (Rec: 05/05/21 12:11 [facility] [id number]) OP-PT Subjective Patient Comments Patient Comments Pt feels like the tape helped a lot but did have some pain when having in straight in bed at first but better now. She has been doing a lot of cooking and on her feet a lot and did well after 2 days on her feet. Feels like R knee is doing better again. PT-OP-D Balance Start: 03/10/21 17:44 Freq: Status: Active Protocol: Document 04/14/21 09:45 [facility] (Rec: 04/14/21 12:18 [facility] [id number]) Balance Tests Single Limb Standing Single Limb- Right 12 sec w/minor lat lean Single Limb- Left 10 sec PT-OP-F Manual Assessment Start: 03/10/21 17:44 Freq: Status: Active Protocol: Document 03/11/21 09:51 [facility] (Rec: 03/11/21 10:34 [facility] [id number]) Manual Assessments Joint Mobility Assessment Joint Mobility Assessment B Varus knees & rear foot B, bunion L>R, IR of femur B, ER of tibia L>R, knee goes into IR R w/knee flex, flat arch PT-OP-G Mobility & Gait Start: 03/10/21 17:44 Freq: Status: Active Protocol: Document 03/11/21 09:51 [facility] (Rec: 03/11/21 10:34 [facility] [id number]) OP Gait Assessment Comments Gait Comments Amb w/dec push off R>L, lat lean over R w/WB significant, add of L PT-OP-J Posture/Palpation/Skin Start: 03/10/21 17:44 Freq: Status: Active Protocol: Document 03/11/21 09:51 [facility] (Rec: 03/11/21 10:34 [facility] [id number]) Posture Evaluation [facility] Postural Classification System Lumbar Protective Mechanism Left AP 0 Lumbar Protective Mechanism Right AP 1 Lumbar Protective Mechanism Left PA 1 Lumbar Protective Mechanism Right PA 0 PT-OP-K Range of Motion Start: 03/10/21 17:44 Freq: Status: Active Protocol: Document 04/14/21 09:45 [facility] (Rec: 04/14/21 12:18 [facility] [id number]) Knee Goniometric Range of Motion Knee Right Flexion Active (degrees) 103 Extension Active (degrees) 15 Comments discomfort flex & ext Left Flexion Active (degrees) 115 Extension Active (degrees) 5 PT-OP-L Special Tests Start: 03/10/21 17:44 Freq: Status: Active Protocol: Document 03/11/21 09:51 [facility] (Rec: 03/11/21 10:34 [facility] [id number]) Special Tests Knee Special Tests Hamstring Test Results mild-mod tightness B PT-OP-M Strength Start: 03/10/21 17:44 Freq: Status: Active Protocol: Document 04/14/21 09:45 [facility] (Rec: 04/14/21 12:18 [facility] [id number]) Hip Strength Hip Manual Muscle Testing Right Flexion (L2) 4 Good Extension (S1) 4 Good Abduction 4 Good Adduction 3+ Fair+ External Rotation 3+ Fair+ Internal Rotation 3+ Fair+ Left Flexion (L2) 4 Good Extension (S1) 4 Good Abduction 4- Good- Adduction 4 Good External Rotation 4 Good Internal Rotation 4+ Good+ Knee Strength Knee Manual Muscle Testing Right Flexion (S2) 4+ Good+ Extension (L3) 4- Good- Left Flexion (S2) 5 Normal Extension (L3) 4+ Good+ Ankle/Foot Strength Ankle and Foot Manual Muscle Testing Right Dorsiflexion (L4) 5 Normal Plantarflexion (S1) 5 Normal Comments 20 heel raises B w/inversion Left Dorsiflexion (L4) 5 Normal Plantarflexion (S1) 5 Normal PT-OP-Q Treatments Start: 03/10/21 17:44 Freq: Status: Active Protocol: Document 05/05/21 10:34 [facility] (Rec: 05/05/21 12:11 [facility] [id number]) Gym Equipment Sport Cord fwd walk Exercise Details cues for pusho ff and no lat lean Cord/Resistance green Reps/Duration 15 Comments mirror in front Gait Training Gait Activity wt shifts Distance/Duration 15 ea Comments 1. wt shift to opp LE B 2. wt shift w/step through B resisted gait Description w/dowel resisted by PT Distance/Duration 2x50ft gait Description working on push off and no lat lean Distance/Duration 4x20ft gait at wall Comments 1. hold in knee ext and hip ext SL w/alt LE march into flex, add, ER, DF pattern x10 sec x2 B 2. 1. hold in knee ext and hip ext SL w/alt LE march into flex, add, ER, DF pattern then go into PF x10 sec x2 B Manual Therapy Treatment Soft Tissue Mobilization glute Body Location R glutes along sacral border & along border of SI Mobilization Type Rolling,Strumming Intensity/Depth Moderate Body Position Sidelying Joint Mobilizations innominate Joint R gapping & Ext FM Taping KT Body Location 3 Y Treatment Focus for med tracking Type of Tape Kinesio Tape PT-OP-S Aquatic Treatment Start: 03/28/21 15:11 Freq: Status: Active Protocol: Document 04/23/21 14:28 MARBELLA (Rec: 04/23/21 14:35 LJ [id number]) Aquatics Treatment Pool Entry/Exit Pool Entry/Exit Method Stairs Assistance Independent Water Walking [place] May Water Level Chest Level Marching Water Level Chest Level jogging Water Level Chest Level fwd, back, side 2 side Water Level Chest Level Lower Extremity Exercises squats Details at wall Body Position Standing Water Level Waist Level Reps/Duration 15 knee extension Details at wall Body Position Standing Water Level Waist Level Reps/Duration 2x10 B HS jog Water Level Chest Level Reps/Duration 2 laps Comments cue for gentle landing 4 way hip Details at wall Body Position Standing Water Level Chest Level Reps/Duration 2 x 10 each B SLS Details bilateral Body Position Standing Water Level Waist Level Reps/Duration 4 min Comments opposite LE movement for destabilizing Lower Extremity Stretches TFL Details at wall; right side Body Position Standing Water Level Waist Level Reps/Duration 30 sec x2 free the hip Body Position Supine Reps/Duration 8 B quad, HS, hip flexors, gastroc Details at wall Body Position Standing Water Level Waist Level Reps/Duration 2 x 30 ea [place] Activities [place] Activities Bicycle,Bicycle Backwards, Cross Country,Hip Abduction/ Adduction Equipment belt, med BBs Duration 10 PT-OP-T Assessment and Plan Start: 03/10/21 17:44 Freq: Status: Active Protocol: Document 05/05/21 10:34 [facility] (Rec: 05/05/21 12:11 [facility] [id number]) Physical Therapy Assessment Goals ROM [place] Cutting Machine Tender Goal (LTG) Pt will improve knee ROM to at least 4-115 to allow for improved gait mechanics and tolerance to stairs. 2-L improved LTG Duration 06/12/21 balance Care Home Goal (LTG) Pt will be able to do at least 12 sec SLS w/o lat shear of hips B in order to show improved balance and stability in the community and improve her gait mechanics. 2 dec lean and use of UEs LTG Duration 06/12/21 stairs Short Term Goal (STG) Pt will be able to ascend stairs without rail reciprocally w/o pain 2-still difficult since reinjury STG Duration 05/12/21 Almond Cutting Machine Tender Goal (LTG) Pt will be able to consistatnly descend stairs reciprocally w/o pain w/min rail use LTG Duration 06/12/21 strength Short Term Goal (STG) PT will be indep w/HEP for aquatic and land exercises in order to have appropriate fitness program to dec knee pain and manage weight to help w/knee pain. STG Duration achieved and progressing as pt able Care Home Goal (LTG) pt will have at least 4+/5 LE strength in all planes and at least 3/5 LPM in all planes to show improvement in strength in order to allow improved ability for mobility. 27-improved L LTG Duration 06/12/21 LEFS Impairment 49/80 Care Home Goal (LTG) Pt will improve LEFS score to at least 60/80 to show improved functional ability. 04/14 improved to 51/80 LTG Duration 06/12/21 Assessment Summary Assessment pt had imrpoved R hip ext after manual allowing improved push off w/RLE. She has significant hip abd/ext weakness especailly in WB which causes her to lat lean w /gait still. Physical Therapy Plan Frequency and Duration Frequency of Treatment 1-2x/week Duration of Treatment 2 months Plan of Care Start Date 04/14/21 Plan of Care End Date 06/12/21
--- NOTE | 2021-05-19 12:28 | PT.OTN ---
Current Diagnoses Bilateral primary osteoarthritis of knee (05/19/21) Difficulty in walking, not elsewhere classified (05/19/21) Weakness (05/19/21) Physical Therapy Treatment Note PT-OP-A Visit Information Start: 03/10/21 17:44 Freq: Status: Active Protocol: Document 05/19/21 09:06 [facility] (Rec: 05/19/21 11:20 [facility] [id number]) Out-Patient Physical Therapy Visit Information Visit Information Visit Type Progress Note Visit Start Time 09:07 Visit Stop Time 09:45 Total Visit Minutes 38 Visit Number 10 Number of HYDROTHERAPIST Visits 0 PT-OP-B Current Condition Start: 03/10/21 17:44 Freq: Status: Active Protocol: Document 03/11/21 09:51 [facility] (Rec: 03/11/21 10:34 [facility] [id number]) Current Condition History of Current Condition Onset Date at least 11 years ago. Current Complaints B knee pain History of Current Condition Pt reports with medication her knee pain is under control. She has lost 100 lbs and that has helped along w/working w/ canine service instructor trainer but w/COVID she isn't working now. She is girotonics and taht has helped a lot. Pt reports she was diagnosed w/ OA 11 years ago. said there is some bone on bone but was not at the point for needing a knee replacement. It is hard for her to go down stairs and needs a rail for up/down. UP typically doesn't hurt. Pt reports if she has to stand for a couple hours in the kitchen her knees hurt which is common d/t her large family . She is able to make pain more managable if she sits down for a couple min during cooking. Pt reports R knee is worse than the left and it will swell something. Sometimes she feels like there is something muscular. Her quad and HS can bother her but the girotonics has helped. She goes once a week to the girotonics canine service instructor trainer. It is supposed to strengthen and improve flexibility. Notes she has not been working out as much recently. SHe has access to a pool and wants to start working out and using the pool more often. Pt reports she did have COVID about 1 year ago and some sideaffects she had was a really bad backache and GRIMM. Since then every now and then she gets the back pain and typically gets some shoulder tightness Pt reports every once in a while her L hip will her bug her, especailly the last couple of days. She sleeps on her side and/or back. Pt has history of gallbladder and C-sections. Pt has a stationary bike and outdoor bike that she plans to use. When she was going to her canine service instructor trainer, she did the treadmill, rowed, and did weights/squats. Pt reports d/t severe pain in heel, she had surgery for lengthening of tendon on the bottom of foot but not positive of foot and that improved it. She thinks maybe left Prior Treatments and Tests Xrays done showing OA; 1 injection 11 years ago that helped Treatment Goals Patient/Caregiver Goals Be able to work out w/o knee pain(bike, pool and lifting) to be able to lose at least 50 more 50lbs, be able to do stairs better(right now has to do step to w/o rail up and step to all the time down) PT-OP-C Subjective Start: 03/10/21 17:44 Freq: Status: Active Protocol: Document 05/19/21 09:06 [facility] (Rec: 05/19/21 11:20 [facility] [id number]) OP-PT Subjective Patient Comments Patient Comments After work on hip, pt reports she has had improved gait. She feels like knee is weak and could give out. Pt reprots she feels like weakness is in post tight. Pt reports L knee doing good. PT-OP-D Balance Start: 03/10/21 17:44 Freq: Status: Active Protocol: Document 05/19/21 09:06 [facility] (Rec: 05/19/21 11:20 [facility] [id number]) Balance Tests Single Limb Standing Single Limb- Right 12 sec w/minor lat lean Single Limb- Left 18 sec PT-OP-F Manual Assessment Start: 03/10/21 17:44 Freq: Status: Active Protocol: Document 03/11/21 09:51 [facility] (Rec: 03/11/21 10:34 [facility] [id number]) Manual Assessments Joint Mobility Assessment Joint Mobility Assessment B Varus knees & rear foot B, bunion L>R, IR of femur B, ER of tibia L>R, knee goes into IR R w/knee flex, flat arch PT-OP-G Mobility & Gait Start: 03/10/21 17:44 Freq: Status: Active Protocol: Document 03/11/21 09:51 [facility] (Rec: 03/11/21 10:34 [facility] [id number]) OP Gait Assessment Comments Gait Comments Amb w/dec push off R>L, lat lean over R w/WB significant, add of L PT-OP-J Posture/Palpation/Skin Start: 03/10/21 17:44 Freq: Status: Active Protocol: Document 03/11/21 09:51 [facility] (Rec: 03/11/21 10:34 [facility] [id number]) Posture Evaluation [facility] Postural Classification System Lumbar Protective Mechanism Left AP 0 Lumbar Protective Mechanism Right AP 1 Lumbar Protective Mechanism Left PA 1 Lumbar Protective Mechanism Right PA 0 PT-OP-K Range of Motion Start: 03/10/21 17:44 Freq: Status: Active Protocol: Document 05/19/21 09:06 [facility] (Rec: 05/19/21 11:20 [facility] [id number]) Knee Goniometric Range of Motion Knee Right Flexion Active (degrees) 112 Extension Active (degrees) 12 Comments discomfort flex & ext Left Flexion Active (degrees) 118 Extension Active (degrees) 5 PT-OP-L Special Tests Start: 03/10/21 17:44 Freq: Status: Active Protocol: Document 03/11/21 09:51 [facility] (Rec: 03/11/21 10:34 [facility] [id number]) Special Tests Knee Special Tests Hamstring Test Results mild-mod tightness B PT-OP-M Strength Start: 03/10/21 17:44 Freq: Status: Active Protocol: Document 05/19/21 09:06 [facility] (Rec: 05/19/21 11:20 [facility] [id number]) Hip Strength Hip Manual Muscle Testing Right Flexion (L2) 4 Good Extension (S1) 4 Good Abduction 4 Good Adduction 4- Good- External Rotation 4- Good- Internal Rotation 4- Good- Left Flexion (L2) 4 Good Extension (S1) 4 Good Abduction 4 Good Adduction 4+ Good+ External Rotation 4+ Good+ Internal Rotation 4+ Good+ Knee Strength Knee Manual Muscle Testing Right Flexion (S2) 4+ Good+ Extension (L3) 4 Good Left Flexion (S2) 5 Normal Extension (L3) 5 Normal Ankle/Foot Strength Ankle and Foot Manual Muscle Testing Right Dorsiflexion (L4) 5 Normal Plantarflexion (S1) 5 Normal Comments 20 heel raises B w/inversion Left Dorsiflexion (L4) 5 Normal Plantarflexion (S1) 5 Normal PT-OP-Q Treatments Start: 03/10/21 17:44 Freq: Status: Active Protocol: Document 05/19/21 09:06 [facility] (Rec: 05/19/21 11:20 [facility] [id number]) Gym Equipment Shuttle Recovery Unilateral Squats Resistance 50# Shuttle Recovery Platform Stable Reps/Time 2x12 Therapeutic Exercises Standing Exercises step up Side right Equipment Used 5 in step Reps/Minutes 15 Comments work on wt shift into LE on step squats Standing Exercise Name cues for bigger range Side bilateral Equipment Used w/chair behind Reps/Minutes 10 Comments cues for glutes and stand all the way straight up Gait Training Gait Activity step down Comments 2in, 3 in and 4 in step in mirror working on bending RLE w/control for decent. cues for core and no lean or twist of body. about 10x on each & 10x on L on 4 in step Manual Therapy Treatment Soft Tissue Mobilization quad Body Location quad tendon Mobilization Type Rolling,Strumming Intensity/Depth Moderate Body Position Hooklying Joint Mobilizations patellofemoral Joint R Direction med, inf, sup Comments II-III tib fem Comments 1. R femur AP FM PT-OP-S Aquatic Treatment Start: 03/28/21 15:11 Freq: Status: Active Protocol: Document 04/23/21 14:28 [facility] (Rec: 04/23/21 14:35 [id number]) Aquatics Treatment Pool Entry/Exit Pool Entry/Exit Method Stairs Assistance Independent Water Walking [place] May Water Level Chest Level Marching Water Level Chest Level jogging Water Level Chest Level fwd, back, side 2 side Water Level Chest Level Lower Extremity Exercises squats Details at wall Body Position Standing Water Level Waist Level Reps/Duration 15 knee extension Details at wall Body Position Standing Water Level Waist Level Reps/Duration 2x10 B HS jog Water Level Chest Level Reps/Duration 2 laps Comments cue for gentle landing 4 way hip Details at wall Body Position Standing Water Level Chest Level Reps/Duration 2 x 10 each B SLS Details bilateral Body Position Standing Water Level Waist Level Reps/Duration 4 min Comments opposite LE movement for destabilizing Lower Extremity Stretches TFL Details at wall; right side Body Position Standing Water Level Waist Level Reps/Duration 30 sec x2 free the hip Body Position Supine Reps/Duration 8 B quad, HS, hip flexors, gastroc Details at wall Body Position Standing Water Level Waist Level Reps/Duration 2 x 30 ea [place] Activities [place] Activities Bicycle,Bicycle Backwards, Cross Country,Hip Abduction/ Adduction Equipment belt, med BBs Duration 10 PT-OP-T Assessment and Plan Start: 03/10/21 17:44 Freq: Status: Active Protocol: Document 05/19/21 09:06 [facility] (Rec: 05/19/21 11:20 [facility] [id number]) Physical Therapy Assessment Goals unstable surfaces Beef Pusher Goal (LTG) Pt will be able to walk on unstable surfaces like beach w /o inc pain in knees. LTG Duration 07/19 ROM Beef Pusher Goal (LTG) Pt will improve knee ROM to at least 4-115 to allow for improved gait mechanics and tolerance to stairs. 04/14-L improved 05/19-improved ROM overall B. Significant improved flex R but still discomfort at end range and lacking knee ext LTG Duration 07/19/21 balance Beef Pusher Goal (LTG) Pt will be able to do at least 12 sec SLS w/o lat shear of hips B in order to show improved balance and stability in the community and improve her gait mechanics. 2 dec lean and use of UEs 05/19-dec lat lean LTG Duration 07/19 stairs Short Term Goal (STG) Pt will be able to ascend stairs without rail reciprocally w/o pain 04/14-still difficult since reinjury STG Duration achieved 05/19 Beef Pusher Goal (LTG) Pt will be able to consistatnly descend stairs reciprocally w/o pain w/min rail use 05/19-pain R knee LTG Duration 07/19/21 strength Short Term Goal (STG) PT will be indep w/HEP for aquatic and land exercises in order to have appropriate fitness program to dec knee pain and manage weight to help w/knee pain. STG Duration achieved and progressing as pt able Beef Pusher Goal (LTG) pt will have at least 4+/5 LE strength in all planes and at least 3/5 LPM in all planes to show improvement in strength in order to allow improved ability for mobility. 04/14-improved L 05/19-improved B LTG Duration 07/19/21 LEFS Impairment 49/80 Shelter Goal (LTG) Pt will improve LEFS score to at least 60/80 to show improved functional ability. 04/14 improved to 51/80 05/19- LTG Duration 07/19 Assessment Summary Assessment Pt cont to improve w/therapy with dec pain and improved ease with activity, but does still feel weak and instability in RLE and still has lat lean w/gait. COnt PT for gait, stairs, and general mboiltiy and strength to dec pain. She has made good improvements w/strength but is still limited w/activities taht require a lot of bending of R knee when WB d/t dec strength and inc instability. Physical Therapy Plan Frequency and Duration Frequency of Treatment 1-2x/week Duration of Treatment 2 months Plan of Care Start Date 05/19/21 Plan of Care End Date 07/20/21 Therapeutic Interventions Therapeutic Interventions Aquatic Therapy,Balance Training,Gait Training,Home Exercise Program,Joint Mobilizations,Manual Therapy, Neuromuscular Re-education, Patient/Caregiver Education, Self-Care/Home Management,Soft Tissue Mobilization,Taping, Therapeutic Activities, Therapeutic Exercises Modalities Cold Pack/Ice Massage,Electric Stimulation,Hot Packs, Infrared Therapy,Ultrasound Next Visit Focus/Plan Next Note Type Treatment Note Next Visit Plan cont to work on strength of glutes and quads for steps
--- NOTE | 2021-05-19 12:28 | PT.OPPOC ---
Physical, Occupational & Speech Therapy At [facility] Current Diagnoses Bilateral primary osteoarthritis of knee (05/19/21) Difficulty in walking, not elsewhere classified (05/19/21) Weakness (05/19/21) Visit Care Team Role Provider Type Lily Antunez ND Family Provider Non-Staff Primary Care Provider Specialty: Naturopathy Address: [address] [place] [address], [id number] Email: Earnest Florentino MD Attending Provider Non-Staff Referring Provider Specialty: Orthopedics Address: [address] [place] [address], [place], [address] Email: Plan Of Care PT-OP-T Assessment and Plan Start: 03/10/21 17:44 Freq: Status: Active Protocol: Document 05/19/21 09:06 [facility] (Rec: 05/19/21 11:20 [facility] [id number]) Physical Therapy Assessment Goals unstable surfaces Curriculum And Instruction Specialist Goal (LTG) Pt will be able to walk on unstable surfaces like beach w /o inc pain in knees. LTG Duration 07/19 ROM Curriculum And Instruction Specialist Goal (LTG) Pt will improve knee ROM to at least 4-115 to allow for improved gait mechanics and tolerance to stairs. 04/14-L improved 05/19-improved ROM overall B. Significant improved flex R but still discomfort at end range and lacking knee ext LTG Duration 07/19/21 balance Curriculum And Instruction Specialist Goal (LTG) Pt will be able to do at least 12 sec SLS w/o lat shear of hips B in order to show improved balance and stability in the community and improve her gait mechanics. 04/14 dec lean and use of UEs 05/19-dec lat lean LTG Duration 07/19 stairs Short Term Goal (STG) Pt will be able to ascend stairs without rail reciprocally w/o pain 04/14-still difficult since reinjury STG Duration achieved 05/19 Snf Goal (LTG) Pt will be able to consistatnly descend stairs reciprocally w/o pain w/min rail use 05/19-pain R knee LTG Duration 07/19/21 strength Short Term Goal (STG) PT will be indep w/HEP for aquatic and land exercises in order to have appropriate fitness program to dec knee pain and manage weight to help w/knee pain. STG Duration achieved and progressing as pt able Snf Goal (LTG) pt will have at least 4+/5 LE strength in all planes and at least 3/5 LPM in all planes to show improvement in strength in order to allow improved ability for mobility. 04/14-improved L 05/19-improved B LTG Duration 07/19/21 LEFS Impairment 49/80 Curriculum And Instruction Specialist Goal (LTG) Pt will improve LEFS score to at least 60/80 to show improved functional ability. 04/14 improved to 51/80 05/19-38 LTG Duration 07/19 Assessment Summary Assessment Pt cont to improve w/therapy with dec pain and improved ease with activity, but does still feel weak and instability in RLE and still has lat lean w/gait. COnt PT for gait, stairs, and general mboiltiy and strength to dec pain. She has made good improvements w/strength but is still limited w/activities taht require a lot of bending of R knee when WB d/t dec strength and inc instability. Physical Therapy Plan Frequency and Duration Frequency of Treatment 1-2x/week Duration of Treatment 2 months Plan of Care Start Date 05/19/21 Plan of Care End Date 07/20/21 Therapeutic Interventions Therapeutic Interventions Aquatic Therapy,Balance Training,Gait Training,Home Exercise Program,Joint Mobilizations,Manual Therapy, Neuromuscular Re-education, Patient/Caregiver Education, Self-Care/Home Management,Soft Tissue Mobilization,Taping, Therapeutic Activities, Therapeutic Exercises Modalities Cold Pack/Ice Massage,Electric Stimulation,Hot Packs, Infrared Therapy,Ultrasound Next Visit Focus/Plan Next Note Type Treatment Note Next Visit Plan cont to work on strength of glutes and quads for steps Plan of Care Dates Plan of Care Start Date 05/19/21 Plan of Care End Date 07/20/21 Electronically Signed by: Anjana Mullins, PT 05/19/21 [id number] Please Sign and Return: I have reviewed this Plan of Care and certify that the skilled therapy services above are required to meet the patient?s needs. Physician Signature Date Printed Name and Credentials Clinical Instructor Signature Printed Name and Credentials
--- NOTE | 2021-05-29 12:05 | PT.OTN ---
Current Diagnoses Bilateral primary osteoarthritis of knee (05/29/21) Difficulty in walking, not elsewhere classified (05/29/21) Weakness (05/29/21) Physical Therapy Treatment Note PT-OP-A Visit Information Start: 03/10/21 17:44 Freq: Status: Active Protocol: Document 05/29/21 09:49 [facility] (Rec: 05/29/21 12:05 [facility] [id number]) Out-Patient Physical Therapy Visit Information Visit Information Visit Type Treatment Note Visit Start Time 09:52 Visit Stop Time 10:31 Total Visit Minutes 39 Visit Number 11 Number of GRINDER OUTSIDE DIAMETER Visits 0 PT-OP-B Current Condition Start: 03/10/21 17:44 Freq: Status: Active Protocol: Document 03/11/21 09:51 [facility] (Rec: 03/11/21 10:34 [facility] [id number]) Current Condition History of Current Condition Onset Date at least 11 years ago. Current Complaints B knee pain History of Current Condition Pt reports with medication her knee pain is under control. She has lost 100 lbs and that has helped along w/working w/ management trainer but w/COVID she isn't working now. She is girotonics and taht has helped a lot. Pt reports she was diagnosed w/ OA 11 years ago. said there is some bone on bone but was not at the point for needing a knee replacement. It is hard for her to go down stairs and needs a rail for up/down. UP typically doesn't hurt. Pt reports if she has to stand for a couple hours in the kitchen her knees hurt which is common d/t her large family . She is able to make pain more managable if she sits down for a couple min during cooking. Pt reports R knee is worse than the left and it will swell something. Sometimes she feels like there is something muscular. Her quad and HS can bother her but the girotonics has helped. She goes once a week to the girotonics management trainer. It is supposed to strengthen and improve flexibility. Notes she has not been working out as much recently. SHe has access to a pool and wants to start working out and using the pool more often. Pt reports she did have COVID about 1 year ago and some sideaffects she had was a really bad backache and GRIMM. Since then every now and then she gets the back pain and typically gets some shoulder tightness Pt reports every once in a while her L hip will her bug her, especailly the last couple of days. She sleeps on her side and/or back. Pt has history of gallbladder and C-sections. Pt has a stationary bike and outdoor bike that she plans to use. When she was going to her management trainer, she did the treadmill, rowed, and did weights/squats. Pt reports d/t severe pain in heel, she had surgery for lengthening of tendon on the bottom of foot but not positive of foot and that improved it. She thinks maybe left Prior Treatments and Tests Xrays done showing OA; 1 injection 11 years ago that helped Treatment Goals Patient/Caregiver Goals Be able to work out w/o knee pain(bike, pool and lifting) to be able to lose at least 50 more 50lbs, be able to do stairs better(right now has to do step to w/o rail up and step to all the time down) PT-OP-C Subjective Start: 03/10/21 17:44 Freq: Status: Active Protocol: Document 05/29/21 09:49 [facility] (Rec: 05/29/21 12:05 [facility] [id number]) OP-PT Subjective Patient Comments Patient Comments Pt reports doing well on her trip to [place]. She walked on the beach and felt pretty good going on walks. Notes starting yesterday her R leg started to feel some weakness again. PT-OP-D Balance Start: 03/10/21 17:44 Freq: Status: Active Protocol: Document 05/19/21 09:06 [facility] (Rec: 05/19/21 11:20 [facility] [id number]) Balance Tests Single Limb Standing Single Limb- Right 12 sec w/minor lat lean Single Limb- Left 18 sec PT-OP-F Manual Assessment Start: 03/10/21 17:44 Freq: Status: Active Protocol: Document 03/11/21 09:51 [facility] (Rec: 03/11/21 10:34 [facility] [id number]) Manual Assessments Joint Mobility Assessment Joint Mobility Assessment B Varus knees & rear foot B, bunion L>R, IR of femur B, ER of tibia L>R, knee goes into IR R w/knee flex, flat arch PT-OP-G Mobility & Gait Start: 03/10/21 17:44 Freq: Status: Active Protocol: Document 03/11/21 09:51 [facility] (Rec: 03/11/21 10:34 [facility] [id number]) OP Gait Assessment Comments Gait Comments Amb w/dec push off R>L, lat lean over R w/WB significant, add of L PT-OP-J Posture/Palpation/Skin Start: 03/10/21 17:44 Freq: Status: Active Protocol: Document 03/11/21 09:51 [facility] (Rec: 03/11/21 10:34 [facility] [id number]) Posture Evaluation [facility] Postural Classification System Lumbar Protective Mechanism Left AP 0 Lumbar Protective Mechanism Right AP 1 Lumbar Protective Mechanism Left PA 1 Lumbar Protective Mechanism Right PA 0 PT-OP-K Range of Motion Start: 03/10/21 17:44 Freq: Status: Active Protocol: Document 05/19/21 09:06 [facility] (Rec: 05/19/21 11:20 [facility] [id number]) Knee Goniometric Range of Motion Knee Right Flexion Active (degrees) 112 Extension Active (degrees) 12 Comments discomfort flex & ext Left Flexion Active (degrees) 118 Extension Active (degrees) 5 PT-OP-L Special Tests Start: 03/10/21 17:44 Freq: Status: Active Protocol: Document 03/11/21 09:51 [facility] (Rec: 03/11/21 10:34 [facility] [id number]) Special Tests Knee Special Tests Hamstring Test Results mild-mod tightness B PT-OP-M Strength Start: 03/10/21 17:44 Freq: Status: Active Protocol: Document 05/19/21 09:06 [facility] (Rec: 05/19/21 11:20 [facility] [id number]) Hip Strength Hip Manual Muscle Testing Right Flexion (L2) 4 Good Extension (S1) 4 Good Abduction 4 Good Adduction 4- Good- External Rotation 4- Good- Internal Rotation 4- Good- Left Flexion (L2) 4 Good Extension (S1) 4 Good Abduction 4 Good Adduction 4+ Good+ External Rotation 4+ Good+ Internal Rotation 4+ Good+ Knee Strength Knee Manual Muscle Testing Right Flexion (S2) 4+ Good+ Extension (L3) 4 Good Left Flexion (S2) 5 Normal Extension (L3) 5 Normal Ankle/Foot Strength Ankle and Foot Manual Muscle Testing Right Dorsiflexion (L4) 5 Normal Plantarflexion (S1) 5 Normal Comments 20 heel raises B w/inversion Left Dorsiflexion (L4) 5 Normal Plantarflexion (S1) 5 Normal PT-OP-Q Treatments Start: 03/10/21 17:44 Freq: Status: Active Protocol: Document 05/29/21 09:49 [facility] (Rec: 05/29/21 12:05 [facility] [id number]) Therapeutic Exercises Standing Exercises pelvic depression Standing Exercise Name standing on step w/allowing dep of R pelvis w/swing w/o lumbar ext Side right Reps/Minutes 2 min hip hike Side right Equipment Used 4 in step w/rail Reps/Minutes 10 Gait Training Gait Activity wt shifts Comments 1. wt shift to opp LE B 2. wt shift w/step through B in mirror gait Description working on push off and no lat lean Distance/Duration 6x20ft Manual Therapy Treatment Soft Tissue Mobilization QL Body Location R Mobilization Type Rolling,Strumming Intensity/Depth Moderate Body Position Sidelying Comments c/r w/ant dep HS Body Location R Mobilization Type Rolling,Strumming Intensity/Depth Moderate Body Position Sidelying glute Body Location R inf glute Mobilization Type Rolling,Strumming Intensity/Depth Moderate Body Position Sidelying Joint Mobilizations innominate Joint R gapping FM Neuro Re-Education Treatment Other Activities PNF Comments 1. Ant depression w/LE pattern sustained holds R 2. post depression rhythmic initiation progressed to sustained holds w/pelvis progressed to w/LE pattern progressed to COI w/LE Pattern R PT-OP-S Aquatic Treatment Start: 03/28/21 15:11 Freq: Status: Active Protocol: Document 04/23/21 14:28 [facility] (Rec: 04/23/21 14:35 [id number]) Aquatics Treatment Pool Entry/Exit Pool Entry/Exit Method Stairs Assistance Independent Water Walking [place] March Water Level Chest Level Marching Water Level Chest Level jogging Water Level Chest Level fwd, back, side 2 side Water Level Chest Level Lower Extremity Exercises squats Details at wall Body Position Standing Water Level Waist Level Reps/Duration 15 knee extension Details at wall Body Position Standing Water Level Waist Level Reps/Duration 2x10 B HS jog Water Level Chest Level Reps/Duration 2 laps Comments cue for gentle landing 4 way hip Details at wall Body Position Standing Water Level Chest Level Reps/Duration 2 x 10 each B SLS Details bilateral Body Position Standing Water Level Waist Level Reps/Duration 4 min Comments opposite LE movement for destabilizing Lower Extremity Stretches TFL Details at wall; right side Body Position Standing Water Level Waist Level Reps/Duration 30 sec x2 free the hip Body Position Supine Reps/Duration 8 B quad, HS, hip flexors, gastroc Details at wall Body Position Standing Water Level Waist Level Reps/Duration 2 x 30 ea [place] Activities [place] Activities Bicycle,Bicycle Backwards, Cross Country,Hip Abduction/ Adduction Equipment belt, med BBs Duration 10 PT-OP-T Assessment and Plan Start: 03/10/21 17:44 Freq: Status: Active Protocol: Document 05/29/21 09:49 [facility] (Rec: 05/29/21 12:05 [facility] [id number]) Physical Therapy Assessment Goals unstable surfaces Early Childhood Associate Teacher Goal (LTG) Pt will be able to walk on unstable surfaces like beach w /o inc pain in knees. LTG Duration 07/19 ROM Senior Living Goal (LTG) Pt will improve knee ROM to at least 4-115 to allow for improved gait mechanics and tolerance to stairs. 04/14-L improved 05/19-improved ROM overall B. Significant improved flex R but still discomfort at end range and lacking knee ext LTG Duration 07/19/21 balance Senior Living Goal (LTG) Pt will be able to do at least 12 sec SLS w/o lat shear of hips B in order to show improved balance and stability in the community and improve her gait mechanics. 04/14 dec lean and use of UEs 05/19-dec lat lean LTG Duration 07/19 stairs Short Term Goal (STG) Pt will be able to ascend stairs without rail reciprocally w/o pain 04/14-still difficult since reinjury STG Duration achieved 05/19 Early Childhood Associate Teacher Goal (LTG) Pt will be able to consistatnly descend stairs reciprocally w/o pain w/min rail use 05/19-pain R knee LTG Duration 07/19/21 strength Short Term Goal (STG) PT will be indep w/HEP for aquatic and land exercises in order to have appropriate fitness program to dec knee pain and manage weight to help w/knee pain. STG Duration achieved and progressing as pt able Senior Living Goal (LTG) pt will have at least 4+/5 LE strength in all planes and at least 3/5 LPM in all planes to show improvement in strength in order to allow improved ability for mobility. 04/14-improved L 05/19-improved B LTG Duration 07/19/21 LEFS Impairment 49/80 Senior Living Goal (LTG) Pt will improve LEFS score to at least 60/80 to show improved functional ability. 04/14 improved to 51/80 05/19-38 LTG Duration 07/19 Assessment Summary Assessment Pt had much better gait pattern after PNF treatment and had less R lat SB w/ treatment and improved wt acceptance onto RLE. Pt also noted feeling looser on R side after and feeling worked, but better. Physical Therapy Plan Frequency and Duration Frequency of Treatment 1-2x/week Duration of Treatment 2 months Plan of Care Start Date 05/19/21 Plan of Care End Date 07/20/21 Next Visit Focus/Plan Next Note Type Treatment Note Next Visit Plan cont to work on strength of glutes and quads for steps & work on depression w/pelvis for gait
--- NOTE | 2021-06-18 13:14 | PT.OTN ---
Current Diagnoses Bilateral primary osteoarthritis of knee (06/18/21) Difficulty in walking, not elsewhere classified (06/18/21) Weakness (06/18/21) Physical Therapy Treatment Note PT-OP-A Visit Information Start: 03/10/21 17:44 Freq: Status: Active Protocol: Document 06/18/21 09:32 [facility] (Rec: 06/18/21 13:14 [facility] [id number]) Out-Patient Physical Therapy Visit Information Visit Information Visit Start Time 10:34 Visit Stop Time 11:15 Total Visit Minutes 41 Visit Number 12 Number of ASSOCIATE PROFESSOR OF ENGLISH Visits 0 PT-OP-B Current Condition Start: 03/10/21 17:44 Freq: Status: Active Protocol: Document 03/11/21 09:51 [facility] (Rec: 03/11/21 10:34 [facility] [id number]) Current Condition History of Current Condition Onset Date at least 11 years ago. Current Complaints B knee pain History of Current Condition Pt reports with medication her knee pain is under control. She has lost 100 lbs and that has helped along w/working w/ clinical provider trainer but w/COVID she isn't working now. She is girotonics and taht has helped a lot. Pt reports she was diagnosed w/ OA 11 years ago. said there is some bone on bone but was not at the point for needing a knee replacement. It is hard for her to go down stairs and needs a rail for up/down. UP typically doesn't hurt. Pt reports if she has to stand for a couple hours in the kitchen her knees hurt which is common d/t her large family . She is able to make pain more managable if she sits down for a couple min during cooking. Pt reports R knee is worse than the left and it will swell something. Sometimes she feels like there is something muscular. Her quad and HS can bother her but the girotonics has helped. She goes once a week to the girotonics clinical provider trainer. It is supposed to strengthen and improve flexibility. Notes she has not been working out as much recently. SHe has access to a pool and wants to start working out and using the pool more often. Pt reports she did have COVID about 1 year ago and some sideaffects she had was a really bad backache and GRIMM. Since then every now and then she gets the back pain and typically gets some shoulder tightness Pt reports every once in a while her L hip will her bug her, especailly the last couple of days. She sleeps on her side and/or back. Pt has history of gallbladder and C-sections. Pt has a stationary bike and outdoor bike that she plans to use. When she was going to her clinical provider trainer, she did the treadmill, rowed, and did weights/squats. Pt reports d/t severe pain in heel, she had surgery for lengthening of tendon on the bottom of foot but not positive of foot and that improved it. She thinks maybe left Prior Treatments and Tests Xrays done showing OA; 1 injection 11 years ago that helped Treatment Goals Patient/Caregiver Goals Be able to work out w/o knee pain(bike, pool and lifting) to be able to lose at least 50 more 50lbs, be able to do stairs better(right now has to do step to w/o rail up and step to all the time down) PT-OP-C Subjective Start: 03/10/21 17:44 Freq: Status: Active Protocol: Document 06/18/21 09:32 [facility] (Rec: 06/18/21 13:14 [facility] [id number]) OP-PT Subjective Patient Comments Patient Comments Pt reports she has had bouts of B knee pain. She thinks there is something going on w/ R hip because if she lays on her R side then when she gets up to go to the bathroom at night, she feels weak and discomfort in R thigh ant. Pt reports yesterday her L knee hurt pretty bad. She has been on her feet a lot and a lot w/ the kids so that may be some of why knees were bothering her more. She still really struggles w/stairs and feels like there may be a fear factor there too. She feels like she is walking straight better. She does notice if she is carrying a load, she does lean more lat. PT-OP-D Balance Start: 03/10/21 17:44 Freq: Status: Active Protocol: Document 06/18/21 09:32 [facility] (Rec: 06/18/21 13:14 [facility] [id number]) Balance Tests Single Limb Standing Single Limb- Right 13 sec able to correct lean Single Limb- Left 28 sec PT-OP-F Manual Assessment Start: 03/10/21 17:44 Freq: Status: Active Protocol: Document 03/11/21 09:51 [facility] (Rec: 03/11/21 10:34 [facility] [id number]) Manual Assessments Joint Mobility Assessment Joint Mobility Assessment B Varus knees & rear foot B, bunion L>R, IR of femur B, ER of tibia L>R, knee goes into IR R w/knee flex, flat arch PT-OP-G Mobility & Gait Start: 03/10/21 17:44 Freq: Status: Active Protocol: Document 03/11/21 09:51 [facility] (Rec: 03/11/21 10:34 [facility] [id number]) OP Gait Assessment Comments Gait Comments Amb w/dec push off R>L, lat lean over R w/WB significant, add of L PT-OP-J Posture/Palpation/Skin Start: 03/10/21 17:44 Freq: Status: Active Protocol: Document 03/11/21 09:51 [facility] (Rec: 03/11/21 10:34 [facility] [id number]) Posture Evaluation [facility] Postural Classification System Lumbar Protective Mechanism Left AP 0 Lumbar Protective Mechanism Right AP 1 Lumbar Protective Mechanism Left PA 1 Lumbar Protective Mechanism Right PA 0 PT-OP-K Range of Motion Start: 03/10/21 17:44 Freq: Status: Active Protocol: Document 06/18/21 09:32 [facility] (Rec: 06/18/21 13:14 [facility] [id number]) Knee Goniometric Range of Motion Knee Right Flexion Active (degrees) 110 Extension Active (degrees) 11 Left Flexion Active (degrees) 125 Extension Active (degrees) 4 PT-OP-L Special Tests Start: 03/10/21 17:44 Freq: Status: Active Protocol: Document 03/11/21 09:51 [facility] (Rec: 03/11/21 10:34 [facility] [id number]) Special Tests Knee Special Tests Hamstring Test Results mild-mod tightness B PT-OP-M Strength Start: 03/10/21 17:44 Freq: Status: Active Protocol: Document 05/19/21 09:06 [facility] (Rec: 05/19/21 11:20 [facility] [id number]) Hip Strength Hip Manual Muscle Testing Right Flexion (L2) 4 Good Extension (S1) 4 Good Abduction 4 Good Adduction 4- Good- External Rotation 4- Good- Internal Rotation 4- Good- Left Flexion (L2) 4 Good Extension (S1) 4 Good Abduction 4 Good Adduction 4+ Good+ External Rotation 4+ Good+ Internal Rotation 4+ Good+ Knee Strength Knee Manual Muscle Testing Right Flexion (S2) 4+ Good+ Extension (L3) 4 Good Left Flexion (S2) 5 Normal Extension (L3) 5 Normal Ankle/Foot Strength Ankle and Foot Manual Muscle Testing Right Dorsiflexion (L4) 5 Normal Plantarflexion (S1) 5 Normal Comments 20 heel raises B w/inversion Left Dorsiflexion (L4) 5 Normal Plantarflexion (S1) 5 Normal PT-OP-Q Treatments Start: 03/10/21 17:44 Freq: Status: Active Protocol: Document 06/18/21 09:32 [facility] (Rec: 06/18/21 13:14 [facility] [id number]) Gym Equipment Shuttle Balance red clips Comments fwd& side:WBOS fwd: NBOS, staggerd stance B Therapeutic Exercises Supine Exercises SLR Supine Exercise Name core focus Side right Reps/Minutes 10 Comments max cues fro back and core bridge Supine Exercise Name focus on core & glutes and cues for no twist Side bilateral Reps/Minutes 8 Comments alt marches Standing Exercises gait at wall Side bilateral Reps/Minutes [id number] step up Side bilateral Equipment Used 6 in step Reps/Minutes 12 Comments work on wt shift into LE on step squats Standing Exercise Name cues for bigger range Side bilateral Equipment Used w/chair behind Reps/Minutes 10 Comments cues for glutes and stand all the way straight up sidesteps Standing Exercise Name cues for core tight and not lat lean Side bilateral Equipment Used L2 Reps/Minutes 20ft Manual Therapy Treatment Soft Tissue Mobilization ITB Body Location R Mobilization Type Rolling,Strumming Intensity/Depth Moderate Body Position Hooklying Joint Mobilizations patellofemoral Joint R Direction med, inf, sup Comments II-III tib fem Comments 1. R femur AP FM Neuro Re-Education Treatment Balance Activities SLS Details B trials Comments focus on no hip shear in mirror PT-OP-S Aquatic Treatment Start: 03/28/21 15:11 Freq: Status: Active Protocol: Document 04/23/21 14:28 [facility] (Rec: 04/23/21 14:35 [facility] [id number]) Aquatics Treatment Pool Entry/Exit Pool Entry/Exit Method Stairs Assistance Independent Water Walking [place] Water Level Chest Level Marching Water Level Chest Level jogging Water Level Chest Level fwd, back, side 2 side Water Level Chest Level Lower Extremity Exercises squats Details at wall Body Position Standing Water Level Waist Level Reps/Duration 15 knee extension Details at wall Body Position Standing Water Level Waist Level Reps/Duration 2x10 B HS jog Water Level Chest Level Reps/Duration 2 laps Comments cue for gentle landing 4 way hip Details at wall Body Position Standing Water Level Chest Level Reps/Duration 2 x 10 each B SLS Details bilateral Body Position Standing Water Level Waist Level Reps/Duration 4 min Comments opposite LE movement for destabilizing Lower Extremity Stretches TFL Details at wall; right side Body Position Standing Water Level Waist Level Reps/Duration 30 sec x2 free the hip Body Position Supine Reps/Duration 8 B quad, HS, hip flexors, gastroc Details at wall Body Position Standing Water Level Waist Level Reps/Duration 2 x 30 ea [place] Activities [place] Activities Bicycle,Bicycle Backwards, Cross [place],Hip Abduction/ Adduction Equipment belt, med BBs Duration 10 PT-OP-T Assessment and Plan Start: 03/10/21 17:44 Freq: Status: Active Protocol: Document 06/18/21 09:32 [facility] (Rec: 06/18/21 13:14 [facility] [id number]) Physical Therapy Assessment Goals unstable surfaces Power Lineman Technician Goal (LTG) Pt will be able to walk on unstable surfaces like beach w /o inc pain in knees. LTG Duration achieved on trip to [place] ROM Long-Term Goal (LTG) Pt will improve knee ROM to at least 4-115 to allow for improved gait mechanics and tolerance to stairs. 04/14-L improved 05/19-improved ROM overall B. Significant improved flex R but still discomfort at end range and lacking knee ext LTG Duration 07/19/21 balance Long-Term Goal (LTG) Pt will be able to do at least 12 sec SLS w/o lat shear of hips B in order to show improved balance and stability in the community and improve her gait mechanics. 04/14 dec lean and use of UEs 05/19-dec lat lean LTG Duration achieved 13 stairs Short Term Goal (STG) Pt will be able to ascend stairs without rail reciprocally w/o pain 04/14-still difficult since reinjury STG Duration achieved 05/19 Long-Term Goal (LTG) Pt will be able to consistatnly descend stairs reciprocally w/o pain w/min rail use 05/19-pain R knee LTG Duration 07/19/21 strength Short Term Goal (STG) PT will be indep w/HEP for aquatic and land exercises in order to have appropriate fitness program to dec knee pain and manage weight to help w/knee pain. STG Duration achieved and progressing as pt able Power Lineman Technician Goal (LTG) pt will have at least 4+/5 LE strength in all planes and at least 3/5 LPM in all planes to show improvement in strength in order to allow improved ability for mobility. 04/14-improved L 05/19-improved B LTG Duration 07/19/21 LEFS Impairment 49/80 Long-Term Goal (LTG) Pt will improve LEFS score to at least 60/80 to show improved functional ability. 04/14 improved to 51/80 05/19-38 LTG Duration 07/19 Assessment Summary Assessment pt is improving well with PT and is showing improved strength and mobility overall. She has been able to do more time on feet but does still have inc pain w/inc activity . She does well with stair ascent but has pain and difficulty w/decent. She has been unconsistant w/visits and has not been seen inabout 3 weeks d/t having family emergency come up. Physical Therapy Plan Frequency and Duration Frequency of Treatment 1-2x/week Duration of Treatment 2 months Plan of Care Start Date 05/19/21 Plan of Care End Date 07/20/21 Next Visit Focus/Plan Next Note Type Treatment Note Next Visit Plan cont to work on strength of glutes and quads for steps & work on depression w/pelvis for gait
--- NOTE | 2021-07-24 09:26 | PT.OTN ---
Current Diagnoses Bilateral primary osteoarthritis of knee (07/24/21) Difficulty in walking, not elsewhere classified (07/24/21) Weakness (07/24/21) Physical Therapy Treatment Note PT-OP-A Visit Information Start: 03/10/21 17:44 Freq: Status: Active Protocol: Document 07/24/21 08:18 [facility] (Rec: 07/24/21 09:25 [facility] [id number]) Out-Patient Physical Therapy Visit Information Visit Information Visit Type Treatment Note Visit Start Time 08:18 Visit Stop Time 09:01 Total Visit Minutes 43 Visit Number 13 Number of CUSTODIAL MAINTENANCE WORKER Visits 0 PT-OP-B Current Condition Start: 03/10/21 17:44 Freq: Status: Active Protocol: Document 03/11/21 09:51 [facility] (Rec: 03/11/21 10:34 [facility] [id number]) Current Condition History of Current Condition Onset Date at least 11 years ago. Current Complaints B knee pain History of Current Condition Pt reports with medication her knee pain is under control. She has lost 100 lbs and that has helped along w/working w/ process trainer but w/COVID she isn't working now. She is girotonics and taht has helped a lot. Pt reports she was diagnosed w/ OA 11 years ago. said there is some bone on bone but was not at the point for needing a knee replacement. It is hard for her to go down stairs and needs a rail for up/down. UP typically doesn't hurt. Pt reports if she has to stand for a couple hours in the kitchen her knees hurt which is common d/t her large family . She is able to make pain more managable if she sits down for a couple min during cooking. Pt reports R knee is worse than the left and it will swell something. Sometimes she feels like there is something muscular. Her quad and HS can bother her but the girotonics has helped. She goes once a week to the girotonics process trainer. It is supposed to strengthen and improve flexibility. Notes she has not been working out as much recently. SHe has access to a pool and wants to start working out and using the pool more often. Pt reports she did have COVID about 1 year ago and some sideaffects she had was a really bad backache and GRIMM. Since then every now and then she gets the back pain and typically gets some shoulder tightness Pt reports every once in a while her L hip will her bug her, especailly the last couple of days. She sleeps on her side and/or back. Pt has history of gallbladder and C-sections. Pt has a stationary bike and outdoor bike that she plans to use. When she was going to her process trainer, she did the treadmill, rowed, and did weights/squats. Pt reports d/t severe pain in heel, she had surgery for lengthening of tendon on the bottom of foot but not positive of foot and that improved it. She thinks maybe left Prior Treatments and Tests Xrays done showing OA; 1 injection 11 years ago that helped Treatment Goals Patient/Caregiver Goals Be able to work out w/o knee pain(bike, pool and lifting) to be able to lose at least 50 more 50lbs, be able to do stairs better(right now has to do step to w/o rail up and step to all the time down) PT-OP-C Subjective Start: 03/10/21 17:44 Freq: Status: Active Protocol: Document 07/24/21 08:18 [facility] (Rec: 07/24/21 09:25 [facility] [id number]) OP-PT Subjective Patient Comments Patient Comments Pt went on a trip and did pretty well. She did some mild hikes and she flet like she did pretty good. Has been compliant w/exercises. She has done girotonics since coming back. Saw chiro Wednesday who thinks R hip is a problem and he worked on hip and knee. SOme of the work on dee area was sore. Patient Questionnaires Lower Extremity Functional Scale LEFS Score 45/80 PT-OP-D Balance Start: 03/10/21 17:44 Freq: Status: Active Protocol: Document 06/18/21 09:32 [facility] (Rec: 06/18/21 13:14 [facility] [id number]) Balance Tests Single Limb Standing Single Limb- Right 13 sec able to correct lean Single Limb- Left 28 sec PT-OP-F Manual Assessment Start: 03/10/21 17:44 Freq: Status: Active Protocol: Document 03/11/21 09:51 [facility] (Rec: 03/11/21 10:34 [facility] [id number]) Manual Assessments Joint Mobility Assessment Joint Mobility Assessment B Varus knees & rear foot B, bunion L>R, IR of femur B, ER of tibia L>R, knee goes into IR R w/knee flex, flat arch PT-OP-G Mobility & Gait Start: 03/10/21 17:44 Freq: Status: Active Protocol: Document 03/11/21 09:51 [facility] (Rec: 03/11/21 10:34 [facility] [id number]) OP Gait Assessment Comments Gait Comments Amb w/dec push off R>L, lat lean over R w/WB significant, add of L PT-OP-J Posture/Palpation/Skin Start: 03/10/21 17:44 Freq: Status: Active Protocol: Document 07/24/21 08:18 [facility] (Rec: 07/24/21 09:25 [facility] [id number]) Posture Evaluation [facility] Postural Classification System Lumbar Protective Mechanism Left AP 2 Lumbar Protective Mechanism Right AP 2 Lumbar Protective Mechanism Left PA 2 Lumbar Protective Mechanism Right PA 2 PT-OP-K Range of Motion Start: 03/10/21 17:44 Freq: Status: Active Protocol: Document 07/24/21 08:18 [facility] (Rec: 07/24/21 09:25 [facility] [id number]) Knee Goniometric Range of Motion Knee Right Flexion Active (degrees) 104 Extension Active (degrees) 11 PT-OP-L Special Tests Start: 03/10/21 17:44 Freq: Status: Active Protocol: Document 03/11/21 09:51 [facility] (Rec: 03/11/21 10:34 [facility] [id number]) Special Tests Knee Special Tests Hamstring Test Results mild-mod tightness B PT-OP-M Strength Start: 03/10/21 17:44 Freq: Status: Active Protocol: Document 07/24/21 08:18 [facility] (Rec: 07/24/21 09:25 [facility] [id number]) Hip Strength Hip Manual Muscle Testing Right Flexion (L2) 4 Good Extension (S1) 4+ Good+ Abduction 4+ Good+ Adduction 4+ Good+ External Rotation 4 Good Internal Rotation 4+ Good+ Left Flexion (L2) 4+ Good+ Extension (S1) 4+ Good+ Abduction 4+ Good+ Adduction 5 Normal External Rotation 5 Normal Internal Rotation 5 Normal Knee Strength Knee Manual Muscle Testing Right Flexion (S2) 5 Normal Extension (L3) 4+ Good+ Left Flexion (S2) 5 Normal Extension (L3) 5 Normal Ankle/Foot Strength Ankle and Foot Manual Muscle Testing Right Dorsiflexion (L4) 5 Normal Plantarflexion (S1) 5 Normal Comments 20 heel raises B w/inversion Left Dorsiflexion (L4) 5 Normal Plantarflexion (S1) 5 Normal PT-OP-Q Treatments Start: 03/10/21 17:44 Freq: Status: Active Protocol: Document 07/24/21 08:18 [facility] (Rec: 07/24/21 09:25 [facility] [id number]) Therapeutic Exercises Standing Exercises gait at wall Side bilateral Reps/Minutes [id number] Gait Training Gait Activity step down Level of Assistance rail prn Distance/Duration 8 min Comments 1.3 in to 4 in to 6 in. working on reps for down on R w/keeping body straight and bending R knee thenw orking on reciprocal down 4 in and 6 in stpes Manual Therapy Treatment Soft Tissue Mobilization LE Body Location R circumfrential at knee, lower leg & distal thigh Mobilization Type Myofascial Release,Strumming Intensity/Depth Moderate Body Position Supine Joint Mobilizations tib fem Comments 1. R PA FM 2. IR tibia FM PT-OP-S Aquatic Treatment Start: 03/28/21 15:11 Freq: Status: Active Protocol: Document 04/23/21 14:28 [facility] (Rec: 04/23/21 14:35 [facility] [id number]) Aquatics Treatment Pool Entry/Exit Pool Entry/Exit Method Stairs Assistance Independent Water Walking [place] March Water Level Chest Level Marching Water Level Chest Level jogging Water Level Chest Level fwd, back, side 2 side Water Level Chest Level Lower Extremity Exercises squats Details at wall Body Position Standing Water Level Waist Level Reps/Duration 15 knee extension Details at wall Body Position Standing Water Level Waist Level Reps/Duration 2x10 B HS jog Water Level Chest Level Reps/Duration 2 laps Comments cue for gentle landing 4 way hip Details at wall Body Position Standing Water Level Chest Level Reps/Duration 2 x 10 each B SLS Details bilateral Body Position Standing Water Level Waist Level Reps/Duration 4 min Comments opposite LE movement for destabilizing Lower Extremity Stretches TFL Details at wall; right side Body Position Standing Water Level Waist Level Reps/Duration 30 sec x2 free the hip Body Position Supine Reps/Duration 8 B quad, HS, hip flexors, gastroc Details at wall Body Position Standing Water Level Waist Level Reps/Duration 2 x 30 ea [place] Activities [place] Activities Bicycle,Bicycle Backwards, Cross [place],Hip Abduction/ Adduction Equipment belt, med BBs Duration 10 PT-OP-T Assessment and Plan Start: 03/10/21 17:44 Freq: Status: Active Protocol: Document 07/24/21 08:18 [facility] (Rec: 07/24/21 09:25 [facility] [id number]) Physical Therapy Assessment Goals unstable surfaces Shelter Goal (LTG) Pt will be able to walk on unstable surfaces like beach w /o inc pain in knees. LTG Duration achieved on trip to [place] ROM Act Tutor Goal (LTG) Pt will improve knee ROM to at least 4-115 to allow for improved gait mechanics and tolerance to stairs. 04/14-L improved 05/19-improved ROM overall B. Significant improved flex R but still discomfort at end range and lacking knee ext 07/24-no change LTG Duration 09/23/21 balance Act Tutor Goal (LTG) Pt will be able to do at least 12 sec SLS w/o lat shear of hips B in order to show improved balance and stability in the community and improve her gait mechanics. 04/14 dec lean and use of UEs 05/19-dec lat lean LTG Duration achieved 06/18 stairs Short Term Goal (STG) Pt will be able to ascend stairs without rail reciprocally w/o pain 04/14-still difficult since reinjury STG Duration achieved 05/19 Shelter Goal (LTG) Pt will be able to consistatnly descend stairs reciprocally w/o pain w/min rail use 05/19-pain R knee LTG Duration 07/19/21 strength Short Term Goal (STG) PT will be indep w/HEP for aquatic and land exercises in order to have appropriate fitness program to dec knee pain and manage weight to help w/knee pain. STG Duration achieved and progressing as pt able Shelter Goal (LTG) pt will have at least 4+/5 LE strength in all planes and at least 3/5 LPM in all planes to show improvement in strength in order to allow improved ability for mobility. 04/14-improved L 05/19-improved B 07/24-cont improvement LTG Duration 09/23/21 LEFS Impairment 49/80 Shelter Goal (LTG) Pt will improve LEFS score to at least 60/80 to show improved functional ability. 04/14 improved to 51/80 05/19-38 LTG Duration 09/23 Assessment Summary Assessment No significant progress has been seen d/t pt having break w/therapy d/t awaiting further auth and pt away and had to wait to get in to available openings. She has been compliant w/HEP and did well with hikes and functional activities, but still having difficulty w/stair decent. That was imrpoved after manual w/dec pain w/stairs, inc ROM into flex and IR at knee and worked on mechanics fro decent of stairs. Cont PT to work on inc ease w/up/down from ground and down stairs. Physical Therapy Plan Frequency and Duration Frequency of Treatment 1x/Week Duration of Treatment 2 months Plan of Care Start Date 07/24/21 Plan of Care End Date 09/23/21 Therapeutic Interventions Therapeutic Interventions Aquatic Therapy,Balance Training,Gait Training,Home Exercise Program,Joint Mobilizations,Manual Therapy, Neuromuscular Re-education, Patient/Caregiver Education, Self-Care/Home Management,Soft Tissue Mobilization,Taping, Therapeutic Activities, Therapeutic Exercises Modalities Cold Pack/Ice Massage,Electric Stimulation,Hot Packs, Infrared Therapy,Ultrasound Next Visit Focus/Plan Next Note Type Treatment Note Next Visit Plan work on ability for step down and push off w/gait
--- NOTE | 2021-07-24 09:26 | PT.OPPOC ---
Physical, Occupational & Speech Therapy At [facility] Current Diagnoses Bilateral primary osteoarthritis of knee (07/24/21) Difficulty in walking, not elsewhere classified (07/24/21) Weakness (07/24/21) Visit Care Team Role Provider Type Lily Antunez ND Family Provider Non-Staff Primary Care Provider Specialty: Naturopathy Address: [address] [place] [address], [id number] Email: Earnest Florentino MD Attending Provider Non-Staff Referring Provider Specialty: Orthopedics Address: [address] [place] [address], [place], [address] Email: Plan Of Care PT-OP-T Assessment and Plan Start: 03/10/21 17:44 Freq: Status: Active Protocol: Document 07/24/21 08:18 [facility] (Rec: 07/24/21 09:25 [facility] [id number]) Physical Therapy Assessment Goals unstable surfaces Qual Research Manager Goal (LTG) Pt will be able to walk on unstable surfaces like beach w /o inc pain in knees. LTG Duration achieved on trip to [facility] Custodial Goal (LTG) Pt will improve knee ROM to at least 4-115 to allow for improved gait mechanics and tolerance to stairs. 04/14-L improved 05/19-improved ROM overall B. Significant improved flex R but still discomfort at end range and lacking knee ext 07/24-no change LTG Duration 09/23/21 balance Custodial Goal (LTG) Pt will be able to do at least 12 sec SLS w/o lat shear of hips B in order to show improved balance and stability in the community and improve her gait mechanics. 04/14 dec lean and use of UEs 05/19-dec lat lean LTG Duration achieved 06/18 stairs Short Term Goal (STG) Pt will be able to ascend stairs without rail reciprocally w/o pain 04/14-still difficult since reinjury STG Duration achieved 05/19 Qual Research Manager Goal (LTG) Pt will be able to consistatnly descend stairs reciprocally w/o pain w/min rail use 05/19-pain R knee LTG Duration 07/19/21 strength Short Term Goal (STG) PT will be indep w/HEP for aquatic and land exercises in order to have appropriate fitness program to dec knee pain and manage weight to help w/knee pain. STG Duration achieved and progressing as pt able Custodial Goal (LTG) pt will have at least 4+/5 LE strength in all planes and at least 3/5 LPM in all planes to show improvement in strength in order to allow improved ability for mobility. 04/14-improved L 05/19-improved B 07/24-cont improvement LTG Duration 09/23/21 LEFS Impairment 49/80 Qual Research Manager Goal (LTG) Pt will improve LEFS score to at least 60/80 to show improved functional ability. 04/14 improved to 51/80 05/19-38 LTG Duration 09/23 Assessment Summary Assessment No significant progress has been seen d/t pt having break w/therapy d/t awaiting further auth and pt away and had to wait to get in to available openings. She has been compliant w/HEP and did well with hikes and functional activities, but still having difficulty w/stair decent. That was imrpoved after manual w/dec pain w/stairs, inc ROM into flex and IR at knee and worked on mechanics fro decent of stairs. Cont PT to work on inc ease w/up/down from ground and down stairs. Physical Therapy Plan Frequency and Duration Frequency of Treatment 1x/Week Duration of Treatment 2 months Plan of Care Start Date 07/24/21 Plan of Care End Date 09/23/21 Therapeutic Interventions Therapeutic Interventions Aquatic Therapy,Balance Training,Gait Training,Home Exercise Program,Joint Mobilizations,Manual Therapy, Neuromuscular Re-education, Patient/Caregiver Education, Self-Care/Home Management,Soft Tissue Mobilization,Taping, Therapeutic Activities, Therapeutic Exercises Modalities Cold Pack/Ice Massage,Electric Stimulation,Hot Packs, Infrared Therapy,Ultrasound Next Visit Focus/Plan Next Note Type Treatment Note Next Visit Plan work on ability for step down and push off w/gait Plan of Care Dates Plan of Care Start Date 07/24/21 Plan of Care End Date 09/23/21 Electronically Signed by: Anjana Mullins, PT 07/24/21 8207 If you are in agreement with this Plan of Care, please return a signed and dated copy. I have reviewed this Plan of Care and certify that the skilled therapy services above are required to meet the patient?s needs. Physician Signature Date Printed Name and Credentials Clinical Instructor Signature Printed Name and Credentials
--- NOTE | 2021-08-20 08:54 | PT-OP ANOTE ---
Pt reports she didn't get a reminder and didn't realize it was today. She was planning to call today to check in since she remembered it was possibly this week. She was going to have to cancel d/t her sister having emergency Pacemaker placement & appendectomy.
--- NOTE | 2021-09-04 09:06 | PT.OTN ---
Current Diagnoses Bilateral primary osteoarthritis of knee (09/04/21) Difficulty in walking, not elsewhere classified (09/04/21) Weakness (09/04/21) Physical Therapy Treatment Note PT-OP-A Visit Information Start: 03/10/21 17:44 Freq: Status: Active Protocol: Document 09/04/21 08:18 [facility] (Rec: 09/04/21 09:06 [facility] [id number]) Out-Patient Physical Therapy Visit Information Visit Information Visit Type Treatment Note Visit Start Time 08:24 Visit Stop Time 09:02 Total Visit Minutes 38 Visit Number 14 Number of INTEGRATED LOGISTICS PROGRAMS DIRECTOR Visits 0 PT-OP-B Current Condition Start: 03/10/21 17:44 Freq: Status: Active Protocol: Document 03/11/21 09:51 [facility] (Rec: 03/11/21 10:34 [facility] [id number]) Current Condition History of Current Condition Onset Date at least 11 years ago. Current Complaints B knee pain History of Current Condition Pt reports with medication her knee pain is under control. She has lost 100 lbs and that has helped along w/working w/ new product trainer but w/COVID she isn't working now. She is girotonics and taht has helped a lot. Pt reports she was diagnosed w/ OA 11 years ago. said there is some bone on bone but was not at the point for needing a knee replacement. It is hard for her to go down stairs and needs a rail for up/down. UP typically doesn't hurt. Pt reports if she has to stand for a couple hours in the kitchen her knees hurt which is common d/t her large family . She is able to make pain more managable if she sits down for a couple min during cooking. Pt reports R knee is worse than the left and it will swell something. Sometimes she feels like there is something muscular. Her quad and HS can bother her but the girotonics has helped. She goes once a week to the girotonics new product trainer. It is supposed to strengthen and improve flexibility. Notes she has not been working out as much recently. SHe has access to a pool and wants to start working out and using the pool more often. Pt reports she did have COVID about 1 year ago and some sideaffects she had was a really bad backache and GRIMM. Since then every now and then she gets the back pain and typically gets some shoulder tightness Pt reports every once in a while her L hip will her bug her, especailly the last couple of days. She sleeps on her side and/or back. Pt has history of gallbladder and C-sections. Pt has a stationary bike and outdoor bike that she plans to use. When she was going to her new product trainer, she did the treadmill, rowed, and did weights/squats. Pt reports d/t severe pain in heel, she had surgery for lengthening of tendon on the bottom of foot but not positive of foot and that improved it. She thinks maybe left Prior Treatments and Tests Xrays done showing OA; 1 injection 11 years ago that helped Treatment Goals Patient/Caregiver Goals Be able to work out w/o knee pain(bike, pool and lifting) to be able to lose at least 50 more 50lbs, be able to do stairs better(right now has to do step to w/o rail up and step to all the time down) PT-OP-C Subjective Start: 03/10/21 17:44 Freq: Status: Active Protocol: Document 09/04/21 08:18 [facility] (Rec: 09/04/21 09:06 [facility] [id number]) OP-PT Subjective Patient Comments Patient Comments Pt reprots getting in the pool almost every day. Her PT-OP-D Balance Start: 03/10/21 17:44 Freq: Status: Active Protocol: Document 06/18/21 09:32 [facility] (Rec: 06/18/21 13:14 [facility] [id number]) Balance Tests Single Limb Standing Single Limb- Right 13 sec able to correct lean Single Limb- Left 28 sec PT-OP-F Manual Assessment Start: 03/10/21 17:44 Freq: Status: Active Protocol: Document 03/11/21 09:51 [facility] (Rec: 03/11/21 10:34 [facility] [id number]) Manual Assessments Joint Mobility Assessment Joint Mobility Assessment B Varus knees & rear foot B, bunion L>R, IR of femur B, ER of tibia L>R, knee goes into IR R w/knee flex, flat arch PT-OP-G Mobility & Gait Start: 03/10/21 17:44 Freq: Status: Active Protocol: Document 03/11/21 09:51 [facility] (Rec: 03/11/21 10:34 [facility] [id number]) OP Gait Assessment Comments Gait Comments Amb w/dec push off R>L, lat lean over R w/WB significant, add of L PT-OP-J Posture/Palpation/Skin Start: 03/10/21 17:44 Freq: Status: Active Protocol: Document 07/24/21 08:18 [facility] (Rec: 07/24/21 09:25 [facility] [id number]) Posture Evaluation [facility] Postural Classification System Lumbar Protective Mechanism Left AP 2 Lumbar Protective Mechanism Right AP 2 Lumbar Protective Mechanism Left PA 2 Lumbar Protective Mechanism Right PA 2 PT-OP-K Range of Motion Start: 03/10/21 17:44 Freq: Status: Active Protocol: Document 07/24/21 08:18 [facility] (Rec: 07/24/21 09:25 [facility] [id number]) Knee Goniometric Range of Motion Knee Right Flexion Active (degrees) 104 Extension Active (degrees) 11 PT-OP-L Special Tests Start: 03/10/21 17:44 Freq: Status: Active Protocol: Document 03/11/21 09:51 [facility] (Rec: 03/11/21 10:34 [facility] [id number]) Special Tests Knee Special Tests Hamstring Test Results mild-mod tightness B PT-OP-M Strength Start: 03/10/21 17:44 Freq: Status: Active Protocol: Document 07/24/21 08:18 [facility] (Rec: 07/24/21 09:25 [facility] [id number]) Hip Strength Hip Manual Muscle Testing Right Flexion (L2) 4 Good Extension (S1) 4+ Good+ Abduction 4+ Good+ Adduction 4+ Good+ External Rotation 4 Good Internal Rotation 4+ Good+ Left Flexion (L2) 4+ Good+ Extension (S1) 4+ Good+ Abduction 4+ Good+ Adduction 5 Normal External Rotation 5 Normal Internal Rotation 5 Normal Knee Strength Knee Manual Muscle Testing Right Flexion (S2) 5 Normal Extension (L3) 4+ Good+ Left Flexion (S2) 5 Normal Extension (L3) 5 Normal Ankle/Foot Strength Ankle and Foot Manual Muscle Testing Right Dorsiflexion (L4) 5 Normal Plantarflexion (S1) 5 Normal Comments 20 heel raises B w/inversion Left Dorsiflexion (L4) 5 Normal Plantarflexion (S1) 5 Normal PT-OP-Q Treatments Start: 03/10/21 17:44 Freq: Status: Active Protocol: Document 09/04/21 08:18 [facility] (Rec: 09/04/21 09:06 [facility] [id number]) Therapeutic Exercises Standing Exercises heel raises Standing Exercise Name ste0 Side bilateral Reps/Minutes 12 step down Standing Exercise Name 4 in Side bilateral Reps/Minutes 10 Comments mirror gait at wall Side bilateral Reps/Minutes [id number] step up Side bilateral Equipment Used 6 in step Reps/Minutes 12 Comments work on wt shift into LE on step squats Standing Exercise Name cues for bigger range Side bilateral Equipment Used w/chair behind Reps/Minutes 12 Comments cues for glutes and stand all the way straight up sidesteps Standing Exercise Name cues for core tight and not lat lean Side bilateral Equipment Used L2 Reps/Minutes 20ft Manual Therapy Treatment Soft Tissue Mobilization adductor Body Location R Mobilization Type Rolling Intensity/Depth Moderate HS Body Location HS & calf Mobilization Type Rolling,Strumming Intensity/Depth Moderate Joint Mobilizations patellofemoral Joint R Direction med, inf, sup Comments II-III PT-OP-S Aquatic Treatment Start: 03/28/21 15:11 Freq: Status: Active Protocol: Document 04/23/21 14:28 [facility] (Rec: 04/23/21 14:35 [facility] [id number]) Aquatics Treatment Pool Entry/Exit Pool Entry/Exit Method Stairs Assistance Independent Water Walking [place] May Water Level Chest Level Marching Water Level Chest Level jogging Water Level Chest Level fwd, back, side 2 side Water Level Chest Level Lower Extremity Exercises squats Details at wall Body Position Standing Water Level Waist Level Reps/Duration 15 knee extension Details at wall Body Position Standing Water Level Waist Level Reps/Duration 2x10 B HS jog Water Level Chest Level Reps/Duration 2 laps Comments cue for gentle landing 4 way hip Details at wall Body Position Standing Water Level Chest Level Reps/Duration 2 x 10 each B SLS Details bilateral Body Position Standing Water Level Waist Level Reps/Duration 4 min Comments opposite LE movement for destabilizing Lower Extremity Stretches TFL Details at wall; right side Body Position Standing Water Level Waist Level Reps/Duration 30 sec x2 free the hip Body Position Supine Reps/Duration 8 B quad, HS, hip flexors, gastroc Details at wall Body Position Standing Water Level Waist Level Reps/Duration 2 x 30 ea [place] Activities [place] Activities Bicycle,Bicycle Backwards, Cross Country,Hip Abduction/ Adduction Equipment belt, med BBs Duration 10 PT-OP-T Assessment and Plan Start: 03/10/21 17:44 Freq: Status: Active Protocol: Document 09/04/21 08:18 [facility] (Rec: 09/04/21 09:06 [facility] [id number]) Physical Therapy Assessment Goals ROM Nursing Home Goal (LTG) Pt will improve knee ROM to at least 4-115 to allow for improved gait mechanics and tolerance to stairs. 04/14-L improved 05/19-improved ROM overall B. Significant improved flex R but still discomfort at end range and lacking knee ext 07/24-no change LTG Duration 09/23/21 stairs Short Term Goal (STG) Pt will be able to ascend stairs without rail reciprocally w/o pain 04/14-still difficult since reinjury STG Duration achieved 05/19 International Sourcing Manager Goal (LTG) Pt will be able to consistatnly descend stairs reciprocally w/o pain w/min rail use 05/19-pain R knee LTG Duration 07/19/21 strength Short Term Goal (STG) PT will be indep w/HEP for aquatic and land exercises in order to have appropriate fitness program to dec knee pain and manage weight to help w/knee pain. STG Duration achieved and progressing as pt able Nursing Home Goal (LTG) pt will have at least 4+/5 LE strength in all planes and at least 3/5 LPM in all planes to show improvement in strength in order to allow improved ability for mobility. 04/14-improved L 05/19-improved B 07/24-cont improvement LTG Duration 09/23/21 LEFS Impairment 49/80 International Sourcing Manager Goal (LTG) Pt will improve LEFS score to at least 60/80 to show improved functional ability. 04/14 improved to 51/80 05/19-38 LTG Duration 09/23 Assessment Summary Assessment Pt reproted relief w/manual and had slight improvement in knee ext. Cues needed min w/ exercises. She did well with exercises though but required mirror for step down Physical Therapy Plan Frequency and Duration Frequency of Treatment 1x/Week Duration of Treatment 2 months Plan of Care Start Date 07/24/21 Plan of Care End Date 09/23/21 Next Visit Focus/Plan Next Note Type Treatment Note Next Visit Plan work on ability for step down and push off w/gait
--- NOTE | 2021-09-11 19:08 | PT.OTN ---
Current Diagnoses Bilateral primary osteoarthritis of knee (09/11/21) Difficulty in walking, not elsewhere classified (09/11/21) Weakness (09/11/21) Physical Therapy Treatment Note PT-OP-A Visit Information Start: 03/10/21 17:44 Freq: Status: Active Protocol: Document 09/11/21 11:17 [facility] (Rec: 09/11/21 19:08 [facility] [id number]) Out-Patient Physical Therapy Visit Information Visit Information Visit Type Treatment Note Visit Start Time 11:20 Visit Stop Time 12:02 Total Visit Minutes 42 Visit Number 15 Number of FORMULATOR COMPOUNDER Visits 0 PT-OP-B Current Condition Start: 03/10/21 17:44 Freq: Status: Active Protocol: Document 03/11/21 09:51 [facility] (Rec: 03/11/21 10:34 [facility] [id number]) Current Condition History of Current Condition Onset Date at least 11 years ago. Current Complaints B knee pain History of Current Condition Pt reports with medication her knee pain is under control. She has lost 100 lbs and that has helped along w/working w/ canine service instructor trainer but w/COVID she isn't working now. She is girotonics and taht has helped a lot. Pt reports she was diagnosed w/ OA 11 years ago. said there is some bone on bone but was not at the point for needing a knee replacement. It is hard for her to go down stairs and needs a rail for up/down. UP typically doesn't hurt. Pt reports if she has to stand for a couple hours in the kitchen her knees hurt which is common d/t her large family . She is able to make pain more managable if she sits down for a couple min during cooking. Pt reports R knee is worse than the left and it will swell something. Sometimes she feels like there is something muscular. Her quad and HS can bother her but the girotonics has helped. She goes once a week to the girotonics canine service instructor trainer. It is supposed to strengthen and improve flexibility. Notes she has not been working out as much recently. SHe has access to a pool and wants to start working out and using the pool more often. Pt reports she did have COVID about 1 year ago and some sideaffects she had was a really bad backache and GRIMM. Since then every now and then she gets the back pain and typically gets some shoulder tightness Pt reports every once in a while her L hip will her bug her, especailly the last couple of days. She sleeps on her side and/or back. Pt has history of gallbladder and C-sections. Pt has a stationary bike and outdoor bike that she plans to use. When she was going to her canine service instructor trainer, she did the treadmill, rowed, and did weights/squats. Pt reports d/t severe pain in heel, she had surgery for lengthening of tendon on the bottom of foot but not positive of foot and that improved it. She thinks maybe left Prior Treatments and Tests Xrays done showing OA; 1 injection 11 years ago that helped Treatment Goals Patient/Caregiver Goals Be able to work out w/o knee pain(bike, pool and lifting) to be able to lose at least 50 more 50lbs, be able to do stairs better(right now has to do step to w/o rail up and step to all the time down) PT-OP-C Subjective Start: 03/10/21 17:44 Freq: Status: Active Protocol: Document 09/11/21 11:17 [facility] (Rec: 09/11/21 19:08 [facility] [id number]) OP-PT Subjective Patient Comments Patient Comments pt reports is going to build her a step PT-OP-D Balance Start: 03/10/21 17:44 Freq: Status: Active Protocol: Document 06/18/21 09:32 [facility] (Rec: 06/18/21 13:14 [facility] [id number]) Balance Tests Single Limb Standing Single Limb- Right 13 sec able to correct lean Single Limb- Left 28 sec PT-OP-F Manual Assessment Start: 03/10/21 17:44 Freq: Status: Active Protocol: Document 03/11/21 09:51 [facility] (Rec: 03/11/21 10:34 [facility] [id number]) Manual Assessments Joint Mobility Assessment Joint Mobility Assessment B Varus knees & rear foot B, bunion L>R, IR of femur B, ER of tibia L>R, knee goes into IR R w/knee flex, flat arch PT-OP-G Mobility & Gait Start: 03/10/21 17:44 Freq: Status: Active Protocol: Document 03/11/21 09:51 [facility] (Rec: 03/11/21 10:34 [facility] [id number]) OP Gait Assessment Comments Gait Comments Amb w/dec push off R>L, lat lean over R w/WB significant, add of L PT-OP-J Posture/Palpation/Skin Start: 03/10/21 17:44 Freq: Status: Active Protocol: Document 07/24/21 08:18 [facility] (Rec: 07/24/21 09:25 [facility] [id number]) Posture Evaluation [facility] Postural Classification System Lumbar Protective Mechanism Left AP 2 Lumbar Protective Mechanism Right AP 2 Lumbar Protective Mechanism Left PA 2 Lumbar Protective Mechanism Right PA 2 PT-OP-K Range of Motion Start: 03/10/21 17:44 Freq: Status: Active Protocol: Document 07/24/21 08:18 [facility] (Rec: 07/24/21 09:25 [facility] [id number]) Knee Goniometric Range of Motion Knee Right Flexion Active (degrees) 104 Extension Active (degrees) 11 PT-OP-L Special Tests Start: 03/10/21 17:44 Freq: Status: Active Protocol: Document 03/11/21 09:51 [facility] (Rec: 03/11/21 10:34 [facility] [id number]) Special Tests Knee Special Tests Hamstring Test Results mild-mod tightness B PT-OP-M Strength Start: 03/10/21 17:44 Freq: Status: Active Protocol: Document 07/24/21 08:18 [facility] (Rec: 07/24/21 09:25 [facility] [id number]) Hip Strength Hip Manual Muscle Testing Right Flexion (L2) 4 Good Extension (S1) 4+ Good+ Abduction 4+ Good+ Adduction 4+ Good+ External Rotation 4 Good Internal Rotation 4+ Good+ Left Flexion (L2) 4+ Good+ Extension (S1) 4+ Good+ Abduction 4+ Good+ Adduction 5 Normal External Rotation 5 Normal Internal Rotation 5 Normal Knee Strength Knee Manual Muscle Testing Right Flexion (S2) 5 Normal Extension (L3) 4+ Good+ Left Flexion (S2) 5 Normal Extension (L3) 5 Normal Ankle/Foot Strength Ankle and Foot Manual Muscle Testing Right Dorsiflexion (L4) 5 Normal Plantarflexion (S1) 5 Normal Comments 20 heel raises B w/inversion Left Dorsiflexion (L4) 5 Normal Plantarflexion (S1) 5 Normal PT-OP-Q Treatments Start: 03/10/21 17:44 Freq: Status: Active Protocol: Document 09/11/21 11:17 [facility] (Rec: 09/11/21 19:08 [facility] [id number]) Therapeutic Exercises Standing Exercises SL Standing Exercise Name SLS in mirror w/focus on pelvis level step down Standing Exercise Name 4 in Side bilateral Reps/Minutes 15 Comments mirror & cues hip hike Side right Equipment Used w/ball at wall Reps/Minutes 2x10 Manual Therapy Treatment Soft Tissue Mobilization quad Body Location quad lat Mobilization Type Rolling,Strumming Intensity/Depth Moderate Body Position Hooklying ITB Body Location R Mobilization Type Rolling,Strumming Intensity/Depth Moderate Body Position Hooklying Joint Mobilizations patellofemoral Joint R Direction med, inf, sup Comments II-III tib fem Comments 1. R PA FM 2. IR tibia FM 3. AP tibia FM Self-Care/Home Management Treatment Education Patient Education Home Exercise Program Other Education review of exercises to cont at home. Edu re: importance of good mechanics w/step and how her current mechanics contribue to kene pain. edu to start progressively walking starting at smaller distances to help build up strength & tolerance for trip in Oct PT-OP-S Aquatic Treatment Start: 03/28/21 15:11 Freq: Status: Active Protocol: Document 04/23/21 14:28 [facility] (Rec: 04/23/21 14:35 [facility] [id number]) Aquatics Treatment Pool Entry/Exit Pool Entry/Exit Method Stairs Assistance Independent Water Walking [place] March Water Level Chest Level Marching Water Level Chest Level jogging Water Level Chest Level fwd, back, side 2 side Water Level Chest Level Lower Extremity Exercises squats Details at wall Body Position Standing Water Level Waist Level Reps/Duration 15 knee extension Details at wall Body Position Standing Water Level Waist Level Reps/Duration 2x10 B HS jog Water Level Chest Level Reps/Duration 2 laps Comments cue for gentle landing 4 way hip Details at wall Body Position Standing Water Level Chest Level Reps/Duration 2 x 10 each B SLS Details bilateral Body Position Standing Water Level Waist Level Reps/Duration 4 min Comments opposite LE movement for destabilizing Lower Extremity Stretches TFL Details at wall; right side Body Position Standing Water Level Waist Level Reps/Duration 30 sec x2 free the hip Body Position Supine Reps/Duration 8 B quad, HS, hip flexors, gastroc Details at wall Body Position Standing Water Level Waist Level Reps/Duration 2 x 30 ea [place] Activities [place] Activities Bicycle,Bicycle Backwards, Cross Country,Hip Abduction/ Adduction Equipment belt, med BBs Duration 10 PT-OP-T Assessment and Plan Start: 03/10/21 17:44 Freq: Status: Active Protocol: Document 09/11/21 11:17 [facility] (Rec: 09/11/21 19:08 [facility] [id number]) Physical Therapy Assessment Goals ROM [place] Goal (LTG) Pt will improve knee ROM to at least 4-115 to allow for improved gait mechanics and tolerance to stairs. 04/14-L improved 05/19-improved ROM overall B. Significant improved flex R but still discomfort at end range and lacking knee ext 07/24-no change LTG Duration 09/23/21 stairs Short Term Goal (STG) Pt will be able to ascend stairs without rail reciprocally w/o pain 04/14-still difficult since reinjury STG Duration achieved 05/19 [place] Goal (LTG) Pt will be able to consistatnly descend stairs reciprocally w/o pain w/min rail use 05/19-pain R knee LTG Duration 07/19/21 strength Short Term Goal (STG) PT will be indep w/HEP for aquatic and land exercises in order to have appropriate fitness program to dec knee pain and manage weight to help w/knee pain. STG Duration achieved and progressing as pt able [place]oper Goal (LTG) pt will have at least 4+/5 LE strength in all planes and at least 3/5 LPM in all planes to show improvement in strength in order to allow improved ability for mobility. 04/14-improved L 05/19-improved B 07/24-cont improvement LTG Duration 09/23/21 LEFS Impairment 49/80 [place] Goal (LTG) Pt will improve LEFS score to at least 60/80 to show improved functional ability. 04/14 improved to 51/80 05/19-38 LTG Duration 09/23 Assessment Summary Assessment Improved flex and ext after manual treatment. She still requires cues w/decent of steps and required demo and use of mirror. After use of PT technique, pt did have less pain w/step down. Still has difficulty w/RLE SLS w/o lat shear of hip but did improve after hip hike training. Physical Therapy Plan Frequency and Duration Frequency of Treatment 1x/Week Duration of Treatment 2 months Plan of Care Start Date 07/24/21 Plan of Care End Date 09/23/21 Next Visit Focus/Plan Next Note Type Discharge Summary Next Visit Plan work on ability for step down and push off w/gait
--- NOTE | 2021-10-15 09:36 | PT.OPDS ---
Current Diagnoses Bilateral primary osteoarthritis of knee (09/11/21) Difficulty in walking, not elsewhere classified (09/11/21) Weakness (09/11/21) Visit Care Team Role Provider Type Lily Antunez ND Family Provider Non-Staff Primary Care Provider Specialty: Naturopathy Address: [address] [place] [address], [id number] Email: Earnest Florentino MD Attending Provider Non-Staff Referring Provider Specialty: Orthopedics Address: [facility] [address] M[facility] [address], [place], [address] Email: Visit Number Visit Number 15 Discharge Summary PT-OP-B Current Condition Start: 03/10/21 17:44 Freq: Status: Active Protocol: Document 03/11/21 09:51 [facility] (Rec: 03/11/21 10:34 [facility] [id number]) Current Condition History of Current Condition Onset Date at least 11 years ago. Current Complaints B knee pain History of Current Condition Pt reports with medication her knee pain is under control. She has lost 100 lbs and that has helped along w/working w/ life skills trainer but w/COVID she isn't working now. She is girotonics and taht has helped a lot. Pt reports she was diagnosed w/ OA 11 years ago. said there is some bone on bone but was not at the point for needing a knee replacement. It is hard for her to go down stairs and needs a rail for up/down. UP typically doesn't hurt. Pt reports if she has to stand for a couple hours in the kitchen her knees hurt which is common d/t her large family . She is able to make pain more managable if she sits down for a couple min during cooking. Pt reports R knee is worse than the left and it will swell something. Sometimes she feels like there is something muscular. Her quad and HS can bother her but the girotonics has helped. She goes once a week to the girotonics life skills trainer. It is supposed to strengthen and improve flexibility. Notes she has not been working out as much recently. SHe has access to a pool and wants to start working out and using the pool more often. Pt reports she did have COVID about 1 year ago and some sideaffects she had was a really bad backache and GRIMM. Since then every now and then she gets the back pain and typically gets some shoulder tightness Pt reports every once in a while her L hip will her bug her, especailly the last couple of days. She sleeps on her side and/or back. Pt has history of gallbladder and C-sections. Pt has a stationary bike and outdoor bike that she plans to use. When she was going to her life skills trainer, she did the treadmill, rowed, and did weights/squats. Pt reports d/t severe pain in heel, she had surgery for lengthening of tendon on the bottom of foot but not positive of foot and that improved it. She thinks maybe left Prior Treatments and Tests Xrays done showing OA; 1 injection 11 years ago that helped Treatment Goals Patient/Caregiver Goals Be able to work out w/o knee pain(bike, pool and lifting) to be able to lose at least 50 more 50lbs, be able to do stairs better(right now has to do step to w/o rail up and step to all the time down) PT-OP-C Subjective Start: 03/10/21 17:44 Freq: Status: Active Protocol: Document 09/11/21 11:17 [facility] (Rec: 09/11/21 19:08 [facility] [id number]) OP-PT Subjective Patient Comments Patient Comments pt reports is going to build her a step PT-OP-D Balance Start: 03/10/21 17:44 Freq: Status: Active Protocol: Document 06/18/21 09:32 [facility] (Rec: 06/18/21 13:14 [facility] [id number]) Balance Tests Single Limb Standing Single Limb- Right 13 sec able to correct lean Single Limb- Left 28 sec PT-OP-F Manual Assessment Start: 03/10/21 17:44 Freq: Status: Active Protocol: Document 03/11/21 09:51 [facility] (Rec: 03/11/21 10:34 [facility] [id number]) Manual Assessments Joint Mobility Assessment Joint Mobility Assessment B Varus knees & rear foot B, bunion L>R, IR of femur B, ER of tibia L>R, knee goes into IR R w/knee flex, flat arch PT-OP-G Mobility & Gait Start: 03/10/21 17:44 Freq: Status: Active Protocol: Document 03/11/21 09:51 [facility] (Rec: 03/11/21 10:34 [facility] [id number]) OP Gait Assessment Comments Gait Comments Amb w/dec push off R>L, lat lean over R w/WB significant, add of L PT-OP-J Posture/Palpation/Skin Start: 03/10/21 17:44 Freq: Status: Active Protocol: Document 07/24/21 08:18 [facility] (Rec: 07/24/21 09:25 [facility] [id number]) Posture Evaluation [facility] Postural Classification System Lumbar Protective Mechanism Left AP 2 Lumbar Protective Mechanism Right AP 2 Lumbar Protective Mechanism Left PA 2 Lumbar Protective Mechanism Right PA 2 PT-OP-K Range of Motion Start: 03/10/21 17:44 Freq: Status: Active Protocol: Document 07/24/21 08:18 [facility] (Rec: 07/24/21 09:25 [facility] [id number]) Knee Goniometric Range of Motion Knee Right Flexion Active (degrees) 104 Extension Active (degrees) 11 PT-OP-L Special Tests Start: 03/10/21 17:44 Freq: Status: Active Protocol: Document 03/11/21 09:51 [facility] (Rec: 03/11/21 10:34 [facility] [id number]) Special Tests Knee Special Tests Hamstring Test Results mild-mod tightness B PT-OP-M Strength Start: 03/10/21 17:44 Freq: Status: Active Protocol: Document 07/24/21 08:18 [facility] (Rec: 07/24/21 09:25 [facility] [id number]) Hip Strength Hip Manual Muscle Testing Right Flexion (L2) 4 Good Extension (S1) 4+ Good+ Abduction 4+ Good+ Adduction 4+ Good+ External Rotation 4 Good Internal Rotation 4+ Good+ Left Flexion (L2) 4+ Good+ Extension (S1) 4+ Good+ Abduction 4+ Good+ Adduction 5 Normal External Rotation 5 Normal Internal Rotation 5 Normal Knee Strength Knee Manual Muscle Testing Right Flexion (S2) 5 Normal Extension (L3) 4+ Good+ Left Flexion (S2) 5 Normal Extension (L3) 5 Normal Ankle/Foot Strength Ankle and Foot Manual Muscle Testing Right Dorsiflexion (L4) 5 Normal Plantarflexion (S1) 5 Normal Comments 20 heel raises B w/inversion Left Dorsiflexion (L4) 5 Normal Plantarflexion (S1) 5 Normal PT-OP-T Assessment and Plan Start: 03/10/21 17:44 Freq: Status: Active Protocol: Document 10/15/21 09:34 [facility] (Rec: 02/11/22 09:36 [facility] [id number]) Physical Therapy Assessment Goals ROM Vp Strategy Goal (LTG) Pt will improve knee ROM to at least 4-115 to allow for improved gait mechanics and tolerance to stairs. 04/14-L improved 05/19-improved ROM overall B. Significant improved flex R but still discomfort at end range and lacking knee ext 07/24-no change LTG Duration 09/23/21 stairs Short Term Goal (STG) Pt will be able to ascend stairs without rail reciprocally w/o pain 04/14-still difficult since reinjury STG Duration achieved 05/19 Group Home Goal (LTG) Pt will be able to consistatnly descend stairs reciprocally w/o pain w/min rail use 05/19-pain R knee LTG Duration 07/19/21 strength Short Term Goal (STG) PT will be indep w/HEP for aquatic and land exercises in order to have appropriate fitness program to dec knee pain and manage weight to help w/knee pain. STG Duration achieved and progressing as pt able Group Home Goal (LTG) pt will have at least 4+/5 LE strength in all planes and at least 3/5 LPM in all planes to show improvement in strength in order to allow improved ability for mobility. 04/14-improved L 05/19-improved B 07/24-cont improvement LTG Duration 09/23/21 LEFS Impairment 49/80 Vp Strategy Goal (LTG) Pt will improve LEFS score to at least 60/80 to show improved functional ability. 04/14 improved to 51/80 05/19-38 LTG Duration 09/23 Assessment Summary Assessment Pt is DC at this time d/t insurance restrictions. Insurance denied further visits at this time, so despite pt progress, she is DC Physical Therapy Plan Discharge Physical Therapy Discharge Comments pt d/c d/t insurance restrictions
== END 2022-02-13 09:23 | disposition home or self-care (01) ==
LOC: PHYS 11:15
PROVIDERS: Family Provider Naturopath; PCP Naturopath; Referring Provider Orthopaedic Surgery; Visit Provider Orthopaedic Surgery
DX: M17.0 Bilateral primary osteoarthritis of knee (principal); R53.1 Weakness; R26.2 Difficulty in walking, not elsewhere classified
CPT/HCPCS: 97110; 97112; 97113; 97116; 97140; 97161; 97164; 97535

== ENCOUNTER → 2021-09-15 14:02 | Outpatient (CLI) | payer OTHER, SELFPAY | PROVIDERS: Family Provider Naturopath; PCP Naturopath; Visit Provider Nurse Practitioner Family | DX: J02.9 Acute pharyngitis, unspecified (principal) | CPT/HCPCS: 87070 ==

== ENCOUNTER → 2024-09-24 16:36 | Outpatient (CLI) | payer OTHER, SELFPAY ==
--- NOTE | 2024-09-24 16:38 | DI.RAD.S_ITS ---
PROCEDURE: XR SHOULDER RT MIN 2V INDICATIONS: Rule out fracture or AC joint dislocation TECHNIQUE: 3 the views of the shoulder were acquired. COMPARISON: None. FINDINGS: Bones: No fractures or dislocations. No suspicious bony lesions. Visualized ribs appear intact. Soft tissues: No suspicious soft tissue calcifications. IMPRESSION: No acute bony abnormality. Dictated by: Kriss Watkins M.D. on 09/24/2024 at 16:32 Approved by: rKiss Watkins M.D. on 09/24/2024 at 16:33
== END ==
LOC: RAD 16:37
PROVIDERS: Family Provider Naturopath; PCP Naturopath; Referring Provider Chiropractor; Visit Provider Chiropractor
DX: S43.401A Unspecified sprain of right shoulder joint, initial encounter (principal); X58.XXXA Exposure to other specified factors, initial encounter
CPT/HCPCS: 73030

== ENCOUNTER → 2024-12-21 12:30 | Outpatient (CLI) | payer OTHER, SELFPAY ==
--- NOTE | 2024-12-21 12:31 | DI.ECHO.S_ITS ---
[facility] : : [address] : : [place] : : [id number] : : Phone: [phone] Echocardiogram Report + + :Name: MIGUEL CHAMBERLAIN Study Date: 12/21/2024 Height: 63 in : :[facility] ReadingLocation: Weight: 212 lb : : Gender: Female BSA: 2.0 m2 : :: 1960 Age: 64 yrs BP: 117/75 mmHg: :Reason For Study: Murmur : :Ordering Physician: CARLENE, : :CORRIE Performed By: Kostas Gutierrez : :Referring: CORRIE CONCEPCION : + + Interpretation Summary - The left ventricular contractility is normal. Estimated ejection fraction is greater than 55% with no segmental wall motion abnormalities. No LVH. Normal diastolic function. - The right ventricular contractility is normal. - All cardiac chambers are of normal size. - No significant valvular abnormalities. - No obvious intracardiac shunts. - No obvious intracardiac masses nor thrombi. - No hemodynamically significant pericardial effusion. - Low right-sided filling pressures. Conclusion: Normal biventricular function with no significant valvular nor structural abnormalities. Procedure: A two-dimensional transthoracic echocardiogram with color flow and Doppler was performed. The study quality was technically adequate. There is no prior echocardiogram noted for this patient. The patient was in normal sinus rhythm during the exam. Left Ventricle: The left ventricle is normal in size and wall thickness. Left ventricular systolic function is normal. The ejection fraction is estimated to be 55-60%. There are no focal wall motion abnormalities. Normal diastolic function. Right Ventricle: The right ventricle is normal in size and function. Atria: The left atrial size is normal. Right atrial size is normal. There is no Doppler evidence for an interatrial shunt. Mitral Valve: There is mild mitral annular calcification. The mitral valve leaflets appear to open well. There is no mitral valve stenosis. There is trace mitral regurgitation. Aortic Valve: The aortic valve is trileaflet. The aortic valve opens well. There is no aortic valve stenosis. No aortic regurgitation is present. Tricuspid Valve: The tricuspid valve leaflets are thin and pliable. There is trace tricuspid regurgitation. Pulmonary artery pressures cannot be estimated because of the lack of a measurable TR jet velocity but the IVC suggests a CVP of around 3 mmHg. Pulmonic Valve: The pulmonic valve is not well seen, but is grossly normal. There is trace pulmonic regurgitation. Great Vessels: The aortic root is normal size. The ascending aorta is normal in size. The aortic arch could not be visualized. The pulmonary is not well visualized. The IVC is of normal diameter and collapses greater than 50% with a sniff. This suggests a low right atrial pressure of 3 mm Hg. Pericardium/ Pleura There is no pericardial effusion. MMode/2D Measurements & Calculations LVIDd: 4.4 cm LVOT diam: 1.9 cm LVIDs: 2.9 cm Ao root diam: 2.8 cm FS: 34.6 % asc Aorta Diam: 2.9 cm IVSd: 0.88 cm LVPWd: 0.96 cm LV henriquez. diameter/BSA (cm/m^2): 2.2 LV sys. diameter/BSA (cm/m^2): 1.5 LA A2 area: 17.4 cm2 RA long axis: 5.1 cm LA A4 area: 17.6 cm2 RA area: 12.7 cm2 LA length (vol): 5.5 cm RA vol: 27.0 ml LA vol: 47.7 ml RA : 13.6 ml/m2 LA vol index: 24.1 ml/m2 IVC diam: 1.5 cm RVD1 (basal): 3.4 cm RVD2 (mid): 2.2 cm TAPSE: 2.0 cm Doppler Measurements & Calculations Ao V2 max: 209.7 cm/sec LVOT Max Hakan: 97.0 cm/sec Ao V2 mean: 149.5 cm/sec LV V1 max P.8 mmHg Ao max P.6 mmHg LV V1 VTI: 21.9 cm Ao mean P.0 mmHg BOWEN(I,D): 1.5 cm2 Ao V2 VTI: 42.7 cm BOWEN(V,D): 1.4 cm2 sev ratio: 0.51 BOWEN indexed to BSA (cm^2/m^2): 0.76 MV E max hakan: 103.7 cm/sec SV(LVOT): 64.5 ml MV A max hakan: 85.4 cm/sec MV E/A: 1.2 Med Peak E' Hakan: 7.8 cm/sec E/E' med: 13.2 Lat Peak E' Hakan: 8.7 cm/sec E/E' lat: 11.9 E/e' average: 12.6 MV dec time: 0.22 sec Reading Physician:ESSIE
== END ==
LOC: ECHO 12:31
PROVIDERS: Family Provider Naturopath; PCP Family Medicine; Referring Provider Family Medicine; Visit Provider Family Medicine
DX: R01.1 Cardiac murmur, unspecified (principal); I34.81 Nonrheumatic mitral (valve) annulus calcification
CPT/HCPCS: 93306